=== PATIENT | male | born 1935 | race Caucasian/White ===

== ENCOUNTER 2016-11-13 10:40 | Emergency (ER) | payer MEDICARE, BC ==
--- NOTE | 2016-11-13 11:50 | EDM.PDOC ---
ED HISTORY OF PRESENT ILLNESS - General Chief Complaint: Respiratory Problem Stated Complaint: Per patient and states gentleman has had a cough ongoing for the last week or so seems to be worse at night keeping him up states she is now bringing up a yellowish brownish phlegm patient and denies fever chills night sweats nausea or vomiting states his E. and well drinking plenty of fluids Time Seen by Provider: 11/13/16 11:25 Source of Information: Reports: Patient, Family, RN History Limitations: Reports: No limitations - History of Present Illness INITIAL COMMENTS - FREE TEXT/NARRATIVE: Per his states he had a blackish-looking stool last night patient denied any abdominal pain states he's eating well Timing/Duration: Reports: Week(s): Improves with: Reports: None Worsens with: Reports: None Associated Symptoms (General): Reports: cough, cough w sputum. Denies: diaphoresis, fever/chills, headaches, nausea/vomiting, rash - Related Data Allergies/ADRs: Allergies Allergy/AdvReac Type Severity Reaction Status Date / Time morphine AdvReac Confusion Verified 11/13/16 12:07 Home Meds: Home Meds Ascorbic Acid [C-1000] 1,000 mg PO DAILY 08/28/13 [History] Aspirin/Dipyridamole [Aggrenox 200-25 MG] 1 cap PO BID 08/28/13 [History] Calcium Citrate/Vitamin D3 [Citracal + D Maximum Caplet] 2 each PO DAILY [History] Hydrochlorothiazide 25 mg PO DAILY PRN 08/28/13 [History] Vitamin B Complex [B Complex] 1 each PO BID 08/28/13 [History] Levothyroxine 25 mcg PO ACBREAKFAST 07/06/16 [History] Oxybutynin 5 mg PO BID 07/06/16 [History] Lisinopril 10 mg PO DAILY 11/13/16 [History] Mirabegron [Myrbetriq] 25 mg pe PO DAILY 11/13/16 [History] Past Medical History Cardiovascular History: Reports: Hypertension Genitourinary History: Reports: Other (see below) (PT with a ventral hernia status post cholecystectomy not operational) Other Musculoskeletal History: 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; post CVA Neurological History: Reports: CVA Other Neuro History: 10 years ago Other Dermatologic History: open cyst to low posterior neckline; current upon admission - Past Surgical History Dermatological Surgical History: Reports: Other (see below) Social & Family History - Tobacco Use Smoking Status *Q: Never Smoker - Recreational Drug Use Recreational Drug Use: No ED ROS GENERAL - Review of Systems Review Of Systems: See Below Constitutional: Denies: fever, chills, malaise, weakness, fatigue, decreased appetite, weight loss HEENT: Reports: No symptoms Respiratory: Reports: Cough. Denies: Shortness of Breath, Wheezing, Pleuritic Chest Pain, Sputum, Hemoptysis Cardiovascular: Denies: Chest pain, Dyspnea on exertion, Edema Endocrine: Denies: fatigue GI/Abdominal: Reports: Black stool (Black stools per patient states has had normal bowel movements). Denies: Abdominal pain, Anorexia, Constipation, Diarrhea, Decreased appetite, Difficulty swallowing : Reports: no symptoms Musculoskeletal: Reports: no symptoms Skin: Reports: no symptoms Neurological: Reports: No Symptoms Psychiatric: Reports: No symptoms Hematologic/Lymphatic: Reports: no symptoms Immunologic: Reports: no symptoms ED EXAM, GENERAL - Physical Exam Exam: See Below Exam Limited By: Altered mental status General Appearance: alert, WD/WN, no apparent distress Ears: normal external exam, normal canal, hearing grossly normal, normal TMs Nose: normal inspection, normal mucosa, no blood Throat/Mouth: Normal inspection, Normal lips, Normal teeth, Normal gums, Normal oropharynx, Normal voice, No airway compromise, Other (Patient has mild postnasal drip) Head: atraumatic, normocephalic. No: facial tenderness Neck: normal inspection, supple, non-tender, full range of motion Respiratory/Chest: no respiratory distress, lungs clear, normal breath sounds, no accessory muscle use, chest non-tender, other (Very mild noted diminished breath sounds left lower lobe). No: crackles, rales, rhonchi, wheezing GI/Abdominal: normal bowel sounds, soft, non tender, no organomegaly, no distention, no abnormal bruit, hernia, other (Umbilical hernia noted normal bowel sounds over the area note no tenderness to palpation) Neurological: alert, oriented, CN II-XII intact, normal cognition Psychiatric: normal affect, normal mood Skin Exam: Warm, Dry, Intact, Normal color, No rash Course - Vital Signs Text/Narrative:: One view chest x-ray was ordered to rule out pneumonia CBC and BMP was ordered along with a gastric Hemoccult Hemoccult was negative CBC and BMP were within normal limits glucose mildly elevated chest x-ray no acute process wishes to return home with patient where she has home health scheduled come into the residency Last Recorded V/S: Last Vital Signs Temp 36.6 C 11/13/16 10:40 Pulse 90 11/13/16 10:40 Resp 20 11/13/16 10:40 BP 156/74 H 11/13/16 10:40 Pulse Ox 98 11/13/16 10:40 - Orders/Labs/Meds Orders: Active Orders 24 hr Category Date Time Status Chest 1V Frontal [CR] Stat Exams 11/13/16 11:44 Taken FECAL OCCULT BLOOD,POC SCRN [POC] Stat Lab 11/13/16 13:14 Ordered Labs: Laboratory Tests 11/13/16 11/13/16 Range/Units 12:02 12:02 WBC 11.8 H (4.0-10.0) x10^3/uL RBC 3.80 L (4.5-6.0) x10^6/uL Hgb 12.0 L (14.0-18.0) g/dL Hct 37.3 L (40.0-52.0) % MCV 98.2 H (78.0-93.0) fL MCH 31.6 (26.0-32.0) pg MCHC 32.2 (32.0-36.0) g/dL RDW Coeff of Ra 12.9 (10.0-15.0) % Plt Count 262 (130-400) x10^3/uL Neut % (Auto) 72.8 (50.0-80.0) % Lymph % (Auto) 14.9 L (25.0-50.0) % [place] % (Auto) 11.3 H (2.0-11.0) % Eos % (Auto) 0.8 (0.0-4.0) % Baso % (Auto) 0.2 (0.2-1.2) % Sodium 139 (136-145) mmol/L Potassium 3.9 (3.5-5.1) mmol/L Chloride 105 (98-107) mmol/L Carbon Dioxide 27 (21-32) mmol/L BUN 24 H (7-18) mg/dL Creatinine 1.5 H (0.70-1.30) mg/dL Est Cr Clr Drug Dosing 28.82 mL/min Estimated GFR (MDRD) 45 Glucose 127 H (74-106) mg/dL Calcium 8.2 L (8.5-10.1) mg/dL Departure - Departure Time of Disposition: 13:05 Disposition: Home, Self-Care 01 Condition: good Clinical Impression: Cough in adult Forms: ED Department Discharge Additional Instructions: Spoke with and patient in regards to diagnosis and treatment states they will follow primary care provider Will get some [id number] Coricidin cough syrup and increase fluid intake they are instructed to return to the ER if anything changes or gets worse - My Orders Last 24 Hours: My Active Orders 11/13/16 11:44 Chest 1V Frontal [CR] Stat 11/13/16 13:14 FECAL OCCULT BLOOD,POC SCRN [POC] Stat - Assessment/Plan Last 24 Hours: My Active Orders 11/13/16 11:44 Chest 1V Frontal [CR] Stat 11/13/16 13:14 FECAL OCCULT BLOOD,POC SCRN [POC] Stat
[2016-11-13 11:51] VITALS: BP 156/74
== END 2016-11-13 13:47 | disposition home or self-care (01) ==
LOC: VM.ED 10:40
DX: R05 Cough (principal); I10 Essential (primary) hypertension; Z88.6 Allergy status to analgesic agent
CPT/HCPCS: 36415; 71010; 80048; 85025; 99284; G0328; 99282-GF

== ENCOUNTER 2017-05-01 11:50 | Inpatient (IN) | payer MEDICARE, BC ==
[2017-05-01] MEDS ORDERED: Sodium Chloride 0.9% 10 ML Syringe FLUSH PRN (12:18)
[2017-05-01] MEDS ORDERED: Acetaminophen 325 MG Tab PO PRN (12:18)
[2017-05-01] MEDS: Lactated Ringers 1,000 ML IV SCH ×2 (13:46→23:46)
--- NOTE | 2017-05-01 15:55 | PCM.SN ---
- Free Text/Narrative Note: mild blood in his urine, did have 400 of output after placing the ross. Renal US arranged for Thursday.
--- NOTE | 2017-05-01 18:51 | HP ---
CHIEF COMPLAINT: Weakness. HISTORY OF PRESENT ILLNESS: This is an 82-year-old with a remote history of stroke resulting in some right hemiparesis. His had him out on the [birth year]25, it [birth year] his birthday. They were driving around, and when they got back home, she noticed he was a lot weaker, especially on his right side. She was concerned he might have had another stroke. She called the local ER, but they recommended ambulance, and she thought she could bring him in herself. So, she decided to just wait and see if things got better, but they did not. Now, he is weak overall. He otherwise himself denies any concerns. He is actually not even very happy that he is here at the clinic today. He prefers to stay at home. He has not had any fever or chills. He had some loose bowel movements on Thursday, but none since. He has otherwise been eating and drinking okay. He has not been taking any NSAIDs. He is on Aggrenox chronically for his history of stroke. He has not been using the hydrochlorothiazide as he does have some leg swelling in the evening, but it always goes away by morning. He is not short of breath. He does have some chronic renal insufficiency with creatinine between 1.2 and 1.6, but his last kidney test in 07/2016 was 1.3. He has a history of just mild anemia, last hemoglobin was dropped down slightly to 12.7. Otherwise, he has hypertension. He has been on lisinopril. He has been started on Flomax back in January by Urology. He does take it in the morning. He denies feeling lightheaded or dizzy. ALLERGIES: Include morphine. MEDICATIONS: Include: 1. Flomax 0.4 mg daily in the morning, but switching to night. 2. Ditropan 5 mg twice daily. 3. Levothyroxine 25 mcg daily. 4. Lisinopril 10 mg daily. 5. Aggrenox 25/200 twice daily. 6. Hydrochlorothiazide 1/2 to 1 tablet as needed for leg swelling. 7. Vitamin B complex twice daily. 8. Citracal 2 tablets with breakfast. 9. Lotrisone cream as needed for rash. 10.Vitamin C. 11.It should be noted that he actually used to take 20 mg of lisinopril daily back in 2016. PAST MEDICAL HISTORY: Otherwise, his past medical history includes: 1. Essential hypertension. 2. B12 deficiency. 3. Hypothyroidism. 4. Prediabetes. 5. Old CVA with right hemiparesis. 6. No documented atrial fibrillation. At one point, he did take Coumadin. 7. GERD. 8. BPH, following with Urology. Moderate trilobar prostate with postvoid residual of 117 back in 2015 and meatal stenosis for the urethra. 9. Chronic renal insufficiency. Creatinine 1.2 to 1.6. 10.Urge incontinence, on Ditropan, with a history of urinary retention. 11.Pernicious anemia. PAST SURGICAL HISTORY: The patient has had cholecystectomy and a rotator cuff repair. FAMILY HISTORY: His mother at 89 of old age. He has a daughter who is living, she has had thyroid cancer. His father at 98 of old age. SOCIAL HISTORY: He is to his Mehrdad who still works and takes care of him at home. They also have some other helpers who come into the home. He does not smoke or drink. REVIEW OF SYSTEMS: General: We were unable to get a weight, but there are no noted recent changes in weight. There was no fever. No chills. HEENT: No sore throat. Cardiac: No chest pain. Respiratory: He has had a mild cough, but this is nothing new. He has not been short of breath. Abdomen: He had some loose stools 2 days ago, but nothing since. No abdominal pain otherwise. Neurologic: He is weak really in both lower extremities per his . The patient himself does not complain of anything. Genitourinary: He denies any trouble passing his urine, but he does wear pull- ups. He has had some incontinence. There has been some increased urinary frequency noted by his . She thought maybe he had diabetes. Skin: He otherwise has been noted to be pale. PHYSICAL EXAMINATION: Vital Signs: In the clinic, blood pressure 124/60, temperature 98.5, pulse 76, and O2 of 97 on room air. General: He is in no acute distress. Heart: Regular without appreciated murmur. Lungs: Lung sounds are clear to auscultation bilaterally without crackles or wheezes. He has 2+ carotid pulses without bruit. Abdomen: Positive bowel sounds. Nondistended and nontender. I do not appreciate any bladder enlargement. Extremities: Warm and dry. Just trace edema to the ankles. Mental Status: He is alert. He is orientated x3. Psychiatric: He is joking. He smiled at one point, but then he became very angry when he found out he was staying at the hospital. In addition, on physical exam, weight at the hospital was 79.095 kg, respiratory rate was 20, and O2 was 100% on room air. LABORATORY DATA: Lab work reviewed from the clinic did show the patient to have a normal white count of 7.2, hemoglobin 8.4, and platelets normal at 268. BMP with glucose 128, BUN 36, creatinine 2.95, sodium 142, potassium 4.9, chloride 109, bicarbonate 20, calcium 8.3, and GFR 20. ASSESSMENT AND PLAN: 1. Acute on chronic renal failure. Etiology is unclear. With his anemia, it is possible that this is a gradual worsening over time; however, it could be an acute change as well given the acute onset of worsening weakness around 04/25. At this point, we will check a UA. We will place a Lopez and do strict in's and out's. If obstruction is the cause of his renal insufficiency, then we will hopefully get some improvement with the Lopez. We will try for a renal ultrasound, but it likely will not be until next week. I think that it is okay to wait. 2. Acute on chronic anemia. No reported melena or concern for ongoing bleeding. We will repeat a hemoglobin tomorrow. We will check stools for Hemoccult. Currently, there is no indication for transfusion. Expect that the hemoglobin will go down with IV fluids. If no blood in his stool, we will start heparin probably twice daily for deep venous thrombosis prophylaxis. MCV is slightly elevated. I am going to send off a B12 level as well. 3. Hypothyroidism. He is on thyroxine. I will check a TSH. 4. History of stroke with right hemiplegia. I do not feel that his overall weakness needs new evaluation for stroke. I feel it is probably just some deficits from his old stroke. We will get him up and working with PT. 5. History of prediabetes. Blood sugar is okay. I do not think that is contributing to his current symptoms. 6. Essential hypertension. Blood pressures are under control. I am going to hold the lisinopril given the acute renal failure. He has not been taking his hydrochlorothiazide anyway, but I will hold that as well. 7. Benign prostatic hypertrophy. We will continue Flomax. We will change it to nighttime dosing. 8. Urinary incontinence. He is going to have a Lopez placed for strict I's and O's. I am going to hold the Ditropan. 9. For deep venous thrombosis prophylaxis, we will put on support stockings and SCDs. PLAN: At this point, the patient is admitted for acute care for IV fluids, lab monitoring, and strict in's and out's. We will continue his Aggrenox for stroke prevention unless there is blood found in his stools. Then, we will discontinue that. Anticipate he will need at least 2 nights of acute care. We will try to get him up and working with therapies. He is a code level 3. No CPR. MKA: 05/01/2017 12:51:02 MODL: 05/01/2017 18:46:05 /[id number]
[2017-05-01] MEDS: Aspirin/Dipyridamole 200-25 MG Cap.ER PO SCH (19:56)
[2017-05-01] MEDS: Vitamin B Complex Tab.ER PO SCH (19:56)
[2017-05-02] MEDS: Levothyroxine 25 MCG Tab PO SCH (06:14)
[2017-05-02] MEDS: Vitamin B Complex Tab.ER PO SCH ×2 (08:08→19:42)
[2017-05-02] MEDS: Aspirin/Dipyridamole 200-25 MG Cap.ER PO SCH ×2 (08:08→19:42)
[2017-05-02] MEDS: Calcium Citrate/Vitamin D3 315 MG-250 Unit Tab PO SCH (08:08)
--- NOTE | 2017-05-02 09:12 | PCM.PN ---
- General Info Date of Service: 05/02/17 Subjective Update: No overnight events. Feels the same as yesterday; wondering if he can go home. Denies chest pain, shortness of breath, lightheadedness, abdominal pain, fever, or chills. - Review of Systems General: Reports: No Symptoms HEENT: Reports: No Symptoms Pulmonary: Reports: No Symptoms Cardiovascular: Reports: No Symptoms Gastrointestinal: Reports: No Symptoms Genitourinary: Reports: No Symptoms Musculoskeletal: Reports: No Symptoms Skin: Reports: No Symptoms Neurological: Reports: No Symptoms - Patient Data Vitals - Most Recent: Last Vital Signs Temp 36.7 C 05/02/17 06:00 Pulse 87 05/02/17 06:00 Resp 18 05/02/17 06:00 BP 153/61 H 05/02/17 06:00 Pulse Ox 100 05/02/17 06:00 Weight - Most Recent: 79.095 kg I&O - Last 24 Hours: Intake & Output 05/01/17 05/02/17 05/02/17 22:59 06:59 14:59 Intake Total 973 1644 Output Total 500 1650 Balance 473 -6 Lab Results Last 24 Hours: Laboratory Results - last 24 hr 05/01/17 05/02/17 05/02/17 Range/Units 14:00 07:27 07:27 WBC 9.1 (4.0-10.0) x10^3/uL RBC 2.44 L (4.5-6.0) x10^6/uL Hgb 7.9 L* D (14.0-18.0) g/dL Hct 23.9 L (40.0-52.0) % MCV 98.0 H (78.0-93.0) fL MCH 32.4 H (26.0-32.0) pg MCHC 33.1 (32.0-36.0) g/dL RDW Coeff of Ra 12.5 (10.0-15.0) % Plt Count 262 (130-400) x10^3/uL Neut % (Auto) 62.6 (50.0-80.0) % Lymph % (Auto) 23.8 L (25.0-50.0) % [place] % (Auto) 12.1 H (2.0-11.0) % Eos % (Auto) 1.3 (0.0-4.0) % Baso % (Auto) 0.2 (0.2-1.2) % Sodium 141 (136-145) mmol/L Potassium 4.9 (3.5-5.1) mmol/L Chloride 109 H (98-107) mmol/L Carbon Dioxide 24 (21-32) mmol/L BUN 34 H (7-18) mg/dL Creatinine 2.8 H D (0.70-1.30) mg/dL Est Cr Clr Drug Dosing 15.81 mL/min Estimated GFR (MDRD) 22 Glucose 101 (74-106) mg/dL Calcium 8.2 L (8.5-10.1) mg/dL Corrected Calcium 9.08 (8.5-10.1) mg/dL Total Bilirubin 0.4 (0.2-1.0) mg/dL AST 14 L (15-37) U/L ALT 19 (16-63) U/L Alkaline Phosphatase 58 (46-116) U/L Total Protein 6.4 (6.4-8.2) g/dL Albumin 2.9 L (3.4-5.0) g/dL Globulin 3.5 Albumin/Globulin Ratio 0.83 TSH, Ultra Sensitive (0.358-3.74) uIU/mL Urine Color Yellow (YELLOW) Urine Appearance Clear (CLEAR) Urine pH 5.0 (5.0-8.0) Ur Specific [place] 1.015 Urine Protein Negative (NEGATIVE) mg/dL Urine Glucose (UA) Negative (NEGATIVE) mg/dL Urine Ketones Negative (NEGATIVE) mg/dL Urine Occult Blood Moderate H (NEGATIVE) Urine Nitrite Negative (NEGATIVE) Urine Bilirubin Negative (NEGATIVE) Urine Urobilinogen 0.2 (0.2) EU/dL Ur Leukocyte Esterase Negative (NEGATIVE) Urine RBC 10-20 H (NOT SEEN) /HPF Urine WBC 0-5 (NOT SEEN) /HPF Ur Squamous Epith Cells Not seen (NEGATIVE) /HPF Urine Bacteria Rare (NEGATIVE) /HPF Urine Mucus Not seen (NEGATIVE) /LPF 05/02/17 Range/Units 07:27 WBC (4.0-10.0) x10^3/uL RBC (4.5-6.0) x10^6/uL Hgb (14.0-18.0) g/dL Hct (40.0-52.0) % MCV (78.0-93.0) fL MCH (26.0-32.0) pg MCHC (32.0-36.0) g/dL RDW Coeff of Ra (10.0-15.0) % Plt Count (130-400) x10^3/uL Neut % (Auto) (50.0-80.0) % Lymph % (Auto) (25.0-50.0) % [place] % (Auto) (2.0-11.0) % Eos % (Auto) (0.0-4.0) % Baso % (Auto) (0.2-1.2) % Sodium (136-145) mmol/L Potassium (3.5-5.1) mmol/L Chloride (98-107) mmol/L Carbon Dioxide (21-32) mmol/L BUN (7-18) mg/dL Creatinine (0.70-1.30) mg/dL Est Cr Clr Drug Dosing mL/min Estimated GFR (MDRD) Glucose (74-106) mg/dL Calcium (8.5-10.1) mg/dL Corrected Calcium (8.5-10.1) mg/dL Total Bilirubin (0.2-1.0) mg/dL AST (15-37) U/L ALT (16-63) U/L Alkaline Phosphatase (46-116) U/L Total Protein (6.4-8.2) g/dL Albumin (3.4-5.0) g/dL Globulin Albumin/Globulin Ratio TSH, Ultra Sensitive 4.527 H (0.358-3.74) uIU/mL Urine Color (YELLOW) Urine Appearance (CLEAR) Urine pH (5.0-8.0) Ur Specific [place] Urine Protein (NEGATIVE) mg/dL Urine Glucose (UA) (NEGATIVE) mg/dL Urine Ketones (NEGATIVE) mg/dL Urine Occult Blood (NEGATIVE) Urine Nitrite (NEGATIVE) Urine Bilirubin (NEGATIVE) Urine Urobilinogen (0.2) EU/dL Ur Leukocyte Esterase (NEGATIVE) Urine RBC (NOT SEEN) /HPF Urine WBC (NOT SEEN) /HPF Ur Squamous Epith Cells (NEGATIVE) /HPF Urine Bacteria (NEGATIVE) /HPF Urine Mucus (NEGATIVE) /LPF Med Orders - Current: Current Medications Acetaminophen (Tylenol) 650 mg PO Q4H PRN PRN Reason: Pain (Mild 1-3)/fever Calcium Citrate (Calcium Citrate + D) 2 tab PO DAILY [facility] Last Admin: 05/02/17 08:08 Dose: 2 tab Dipyridamole/Aspirin (Aggrenox 200-25 Mg) 1 cap PO BID [facility] Last Admin: 05/02/17 08:08 Dose: 1 cap Lactated Ringer's (Ringers, Lactated) 1,000 mls @ 100 mls/hr IV ASDIRECTED [facility] Last Admin: 05/01/17 23:46 Dose: 100 mls/hr Levothyroxine Sodium (Levothyroxine) 25 mcg PO ACBREAKFAST [facility] Last Admin: 05/02/17 06:14 Dose: 25 mcg Sodium Chloride (Saline Flush) 10 ml FLUSH ASDIRECTED PRN PRN Reason: Keep Vein Open Tamsulosin HCl (Flomax) 0.4 mg PO BEDTIME [facility] Vitamin B Complex (Balanced B-50) 1 each PO BID [facility] Last Admin: 05/02/17 08:08 Dose: 1 each - Exam General: Alert, Cooperative, No Acute Distress HEENT: Mucous Membr. Moist/[place] Neck: Supple, Trachea Midline, No Thyromegaly. No: Lymphadenopathy Lungs: Clear to Auscultation, Normal Respiratory Effort Cardiovascular: Regular Rate, Regular Rhythm, No Murmurs GI/Abdominal Exam: Normal Bowel Sounds, Soft, Non-Tender, No Organomegaly, No Distention, No Mass Extremities: Non-Tender, No Pedal Edema, Normal Capillary Refill Skin: Warm, Dry, Intact - Problem List & Annotations (1) Acute on chronic renal failure SNOMED Code(s): 352266158 Code(s): N17.9 - ACUTE KIDNEY FAILURE, UNSPECIFIED; N18.9 - CHRONIC KIDNEY DISEASE, UNSPECIFIED Status: Acute Current Visit: Yes Qualifiers: Acute renal failure type: unspecified Chronic kidney disease stage: stage 3 (moderate) Qualified Code(s): N17.9 - Acute kidney failure, unspecified; N18.3 - Chronic kidney disease, stage 3 (moderate) Annotation/Comment:: - Consideration at this point is either progressive of chronic renal disease (suspected due to the concomittant anemia) with possibly some acute kidney injury. - He has had some improvement with the fluids, suggesting at least part of this is prerenal. - He is tolerating the fluid load well and having good urine output. His balance is only 500 cc positive. His weight is stable and he has no clinical signs of fluid overload. - Continue gentle IV fluids. - Renal u/s planned for Thursday. No further work-up over the weekend. (2) Anemia SNOMED Code(s): 643553788 Code(s): D64.9 - ANEMIA, UNSPECIFIED Status: Acute Current Visit: Yes Qualifiers: Anemia type: unspecified type Qualified Code(s): D64.9 - Anemia, unspecified Annotation/Comment:: - Possibly related to progressive CKD. No obvious source of blood loss. - Hemoccult to be done as soon as patient has a BM. - Vitamin B12 level pending. Will do iron studies with labs tomorrow am. - Hgb is down to 7.9 but I honestly expected more of a drop. No clear indication for transfusion until <7. Since he is not symptomatic and it is presumed at least part of this is chronic, I do feel the risks of transfusion outweigh the benefits today. He and his are comfortable with holding off on that. - Recheck Hgb tomorrow. (3) Hypothyroidism SNOMED Code(s): 61943198 Code(s): E03.9 - HYPOTHYROIDISM, UNSPECIFIED Status: Chronic Current Visit: Yes Qualifiers: Hypothyroidism type: acquired Qualified Code(s): E03.9 - Hypothyroidism, unspecified Annotation/Comment:: - TSH only mildly elevated. In light of his current medical issues, I would not adjust his levothyroxine based on this. - Can be rechecked as an outpatient. (4) Cerebrovascular accident SNOMED Code(s): 481092579 Code(s): I63.9 - CEREBRAL INFARCTION, UNSPECIFIED Status: Chronic Current Visit: Yes Qualifiers: CVA mechanism: unspecified Qualified Code(s): I63.9 - Cerebral infarction, unspecified Annotation/Comment:: - Patient has a history of a CVA. Current weakness symptoms presumed to be exacerbation of prior deficits in the setting of his anemia and acute kidney injury. - PT/OT/SW consults. (5) Hypertension SNOMED Code(s): 36835524 Code(s): I10 - ESSENTIAL (PRIMARY) HYPERTENSION Status: Chronic Current Visit: Yes Qualifiers: Hypertension type: essential hypertension Qualified Code(s): I10 - Essential (primary) hypertension Annotation/Comment:: - BP up slightly this am. - His lisinopril and HCTZ are held due to his kidney injury. - Will watch his BP for now. If this increases or does not come down, will need to consider starting a different antihypertensive. Possibly amlodipine would be the best option in light of the renal issues. (6) Urinary incontinence SNOMED Code(s): 596688474 Code(s): R32 - UNSPECIFIED URINARY INCONTINENCE Status: Chronic Current Visit: Yes Qualifiers: Urinary Incontinence type: unspecified incontinence Qualified Code(s): R32 - Unspecified urinary incontinence Annotation/Comment:: - Patient has a ross catheter in place for strict I/O monitoring. - I do feel it is appropriate to leave this in place for now. If his creatinine progressively improves, we could consider removal with a trial of voiding. If we do remove the catheter, he will need some post-void residuals to ensure that urinary retention is not the original cause of his kidney injury. (7) BPH (benign prostatic hyperplasia) SNOMED Code(s): 960468580, 938621023 Code(s): N40.0 - BENIGN PROSTATIC HYPERPLASIA WITHOUT LOWER URINRY TRACT SYMP Status: Chronic Current Visit: Yes Qualifiers: Lower urinary tract symptom presence: unspecified whether lower urinary tract symptoms present Qualified Code(s): N40.0 - Benign prostatic hyperplasia without lower urinary tract symptoms Annotation/Comment:: - Flomax has been continued. - Problem List Review Problem List Initiated/Reviewed/Updated: Yes - Assessment Assessment:: 82 yo male admitted with increased weakness secondary to anemia and ENRIQUE. Doing well this morning. 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 - Plan Plan:: See details under problems above. IV fluids will be continued. No transfusion today. Recheck labs in the am. He is on SCD's for VTE prophylaxis right now in light of his anemia; plan is to start heparin if his hemoccult is negative. He is a DNR. Anticipate he will be on acute status until at least Thursday for ongoing management and follow-up labs. Likely will require swing bed cares for a period of time after that.
[2017-05-02] MEDS: Lactated Ringers 1,000 ML IV SCH ×2 (09:36→19:45)
--- NOTE | 2017-05-02 16:54 | PCM.SN ---
- Free Text/Narrative Note: Hemoccult negative. If Hgb stable again tomorrow am, will start VTE prophylaxis with heparin.
[2017-05-02] MEDS: Tamsulosin 0.4 MG Cap.ER PO SCH (19:42)
[2017-05-03] MEDS: Levothyroxine 25 MCG Tab PO SCH (06:21)
[2017-05-03] MEDS: Lactated Ringers 1,000 ML IV SCH ×2 (07:22→17:22)
[2017-05-03] MEDS: Vitamin B Complex Tab.ER PO SCH ×2 (08:07→20:15)
[2017-05-03] MEDS: Calcium Citrate/Vitamin D3 315 MG-250 Unit Tab PO SCH (08:07)
[2017-05-03] MEDS: Aspirin/Dipyridamole 200-25 MG Cap.ER PO SCH ×2 (08:07→20:15)
--- NOTE | 2017-05-03 08:28 | PCM.PN ---
- General Info Date of Service: 05/03/17 Subjective Update: Slept well again overnight. Still only question is when he can go home. Remains somewhat weak but otherwise no symptoms. - Review of Systems General: Reports: No Symptoms HEENT: Reports: No Symptoms Pulmonary: Reports: No Symptoms Cardiovascular: Reports: No Symptoms Gastrointestinal: Reports: No Symptoms Genitourinary: Reports: No Symptoms Musculoskeletal: Reports: No Symptoms Skin: Reports: No Symptoms Neurological: Reports: No Symptoms - Patient Data Vitals - Most Recent: Last Vital Signs Temp 37.4 C 05/03/17 06:00 Pulse 84 05/03/17 06:00 Resp 20 05/03/17 06:00 BP 141/94 H 05/03/17 06:00 Pulse Ox 95 05/03/17 06:00 Weight - Most Recent: 79.095 kg I&O - Last 24 Hours: Intake & Output 05/02/17 05/03/17 05/03/17 22:59 06:59 14:59 Intake Total 1858 844 Output Total 850 2000 Balance 1008 -1156 Lab Results Last 24 Hours: Laboratory Results - last 24 hr 05/02/17 05/02/17 05/03/17 Range/Units 07:27 07:27 07:24 WBC 9.1 10.2 H (4.0-10.0) x10^3/uL RBC 2.44 L 2.42 L (4.5-6.0) x10^6/uL Hgb 7.9 L* D 7.8 L* (14.0-18.0) g/dL Hct 23.9 L 23.5 L (40.0-52.0) % MCV 98.0 H 97.1 H (78.0-93.0) fL MCH 32.4 H 32.2 H (26.0-32.0) pg MCHC 33.1 33.2 (32.0-36.0) g/dL RDW Coeff of Ra 12.5 12.4 (10.0-15.0) % Plt Count 262 236 (130-400) x10^3/uL Neut % (Auto) 62.6 64.9 (50.0-80.0) % Lymph % (Auto) 23.8 L 21.2 L (25.0-50.0) % [place] % (Auto) 12.1 H 12.1 H (2.0-11.0) % Eos % (Auto) 1.3 1.6 (0.0-4.0) % Baso % (Auto) 0.2 0.2 (0.2-1.2) % Sodium 141 (136-145) mmol/L Potassium 4.9 (3.5-5.1) mmol/L Chloride 109 H (98-107) mmol/L Carbon Dioxide 24 (21-32) mmol/L BUN 34 H (7-18) mg/dL Creatinine 2.8 H D (0.70-1.30) mg/dL Est Cr Clr Drug Dosing 15.81 mL/min Estimated GFR (MDRD) 22 Glucose 101 (74-106) mg/dL Calcium 8.2 L (8.5-10.1) mg/dL Corrected Calcium 9.08 (8.5-10.1) mg/dL Total Bilirubin 0.4 (0.2-1.0) mg/dL AST 14 L (15-37) U/L ALT 19 (16-63) U/L Alkaline Phosphatase 58 (46-116) U/L Total Protein 6.4 (6.4-8.2) g/dL Albumin 2.9 L (3.4-5.0) g/dL Globulin 3.5 Albumin/Globulin Ratio 0.83 09//17 Range/Units 07:24 WBC (4.0-10.0) x10^3/uL RBC (4.5-6.0) x10^6/uL Hgb (14.0-18.0) g/dL Hct (40.0-52.0) % MCV (78.0-93.0) fL MCH (26.0-32.0) pg MCHC (32.0-36.0) g/dL RDW Coeff of Ra (10.0-15.0) % Plt Count (130-400) x10^3/uL Neut % (Auto) (50.0-80.0) % Lymph % (Auto) (25.0-50.0) % [place] % (Auto) (2.0-11.0) % Eos % (Auto) (0.0-4.0) % Baso % (Auto) (0.2-1.2) % Sodium 140 (136-145) mmol/L Potassium 4.9 (3.5-5.1) mmol/L Chloride 109 H (98-107) mmol/L Carbon Dioxide 25 (21-32) mmol/L BUN 30 H (7-18) mg/dL Creatinine 2.5 H (0.70-1.30) mg/dL Est Cr Clr Drug Dosing 17.70 mL/min Estimated GFR (MDRD) 25 Glucose 105 (74-106) mg/dL Calcium 8.1 L (8.5-10.1) mg/dL Corrected Calcium (8.5-10.1) mg/dL Total Bilirubin (0.2-1.0) mg/dL AST (15-37) U/L ALT (16-63) U/L Alkaline Phosphatase (46-116) U/L Total Protein (6.4-8.2) g/dL Albumin (3.4-5.0) g/dL Globulin Albumin/Globulin Ratio Med Orders - Current: Current Medications Acetaminophen (Tylenol) 650 mg PO Q4H PRN PRN Reason: Pain (Mild 1-3)/fever Calcium Citrate (Calcium Citrate + D) 2 tab PO DAILY [facility] Last Admin: 05/03/17 08:07 Dose: 2 tab Dipyridamole/Aspirin (Aggrenox 200-25 Mg) 1 cap PO BID [facility] Last Admin: 05/03/17 08:07 Dose: 1 cap Lactated Ringer's (Ringers, Lactated) 1,000 mls @ 100 mls/hr IV ASDIRECTED [facility] Last Admin: 05/03/17 07:22 Dose: 100 mls/hr Levothyroxine Sodium (Levothyroxine) 25 mcg PO ACBREAKFAST [facility] Last Admin: 05/03/17 06:21 Dose: 25 mcg Sodium Chloride (Saline Flush) 10 ml FLUSH ASDIRECTED PRN PRN Reason: Keep Vein Open Tamsulosin HCl (Flomax) 0.4 mg PO BEDTIME [facility] Last Admin: 05/02/17 19:42 Dose: 0.4 mg Vitamin B Complex (Balanced B-50) 1 each PO BID [facility] Last Admin: 05/03/17 08:07 Dose: 1 each - Exam General: Alert, Cooperative, No Acute Distress HEENT: Mucous Membr. Moist/[place] Neck: Supple, Trachea Midline, No Thyromegaly. No: Lymphadenopathy Lungs: Clear to Auscultation, Normal Respiratory Effort Cardiovascular: Regular Rate, Regular Rhythm, No Murmurs GI/Abdominal Exam: Normal Bowel Sounds, Soft, Non-Tender, No Organomegaly, No Distention, No Mass Extremities: Normal Inspection, Non-Tender, No Pedal Edema, Normal Capillary Refill Skin: Warm, Dry, Intact - Problem List & Annotations (1) Acute on chronic renal failure SNOMED Code(s): 951346692 Code(s): N17.9 - ACUTE KIDNEY FAILURE, UNSPECIFIED; N18.9 - CHRONIC KIDNEY DISEASE, UNSPECIFIED Status: Acute Current Visit: Yes Qualifiers: Acute renal failure type: unspecified Chronic kidney disease stage: stage 3 (moderate) Qualified Code(s): N17.9 - Acute kidney failure, unspecified; N18.3 - Chronic kidney disease, stage 3 (moderate) Annotation/Comment:: - Based on the ongoing creatinine improvement, it would be consistent with an acute on chronic picture. Where is current baseline creatinine is, though, is unclear. 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 - He is tolerating the fluid load well and having excellent urine output. Fluid balance is even. His weight is stable and he has no clinical signs of fluid overload. - Continue gentle IV fluids. - Renal u/s planned for Thursday. No further work-up over the weekend. (2) Anemia SNOMED Code(s): 166085268 Code(s): D64.9 - ANEMIA, UNSPECIFIED Status: Acute Current Visit: Yes Qualifiers: Anemia type: unspecified type Qualified Code(s): D64.9 - Anemia, unspecified Annotation/Comment:: - Possibly related to progressive CKD. No obvious source of blood loss. - Hemoccult negative. - Vitamin B12 level pending. Iron studies are not consistent with iron deficiency anemia but rather anemia of chronic disease with the exception of the normal ferritin. - Hgb is down to 7.8 only. It is surprising he has not had more of a drop with all the IV fluids. No clear indication for transfusion until <7. Since he is not symptomatic and it is presumed at least part of this is chronic, I feel again today that the risks of transfusion outweigh the benefits. He and his are comfortable with holding off on that. - Recheck Hgb tomorrow. (3) Hypothyroidism SNOMED Code(s): 06869590 Code(s): E03.9 - HYPOTHYROIDISM, UNSPECIFIED Status: Chronic Current Visit: Yes Qualifiers: Hypothyroidism type: acquired Qualified Code(s): E03.9 - Hypothyroidism, unspecified Annotation/Comment:: - TSH only mildly elevated. In light of his current medical issues, I would not adjust his levothyroxine based on this. - Can be rechecked as an outpatient. (4) Cerebrovascular accident SNOMED Code(s): 333627327 Code(s): I63.9 - CEREBRAL INFARCTION, UNSPECIFIED Status: Chronic Current Visit: Yes Qualifiers: CVA mechanism: unspecified Qualified Code(s): I63.9 - Cerebral infarction, unspecified Annotation/Comment:: - Patient has a history of a CVA. Current weakness symptoms presumed to be exacerbation of prior deficits in the setting of his anemia and acute kidney injury. - PT/OT/SW consults. (5) Hypertension SNOMED Code(s): 68745793 Code(s): I10 - ESSENTIAL (PRIMARY) HYPERTENSION Status: Chronic Current Visit: Yes Qualifiers: Hypertension type: essential hypertension Qualified Code(s): I10 - Essential (primary) hypertension Annotation/Comment:: - BP has been borderline. - His lisinopril and HCTZ are held due to his kidney injury. - Will continue to watch his BP for now and hold off on starting any new antihypertensives. (6) Urinary incontinence SNOMED Code(s): 367630560 Code(s): R32 - UNSPECIFIED URINARY INCONTINENCE Status: Chronic Current Visit: Yes Qualifiers: Urinary Incontinence type: unspecified incontinence Qualified Code(s): R32 - Unspecified urinary incontinence Annotation/Comment:: - D/C IV fluids. His I/O balance has been very appropriate thus far. - Nursing staff will watch closely today and do PVR periodically to assess how well he is emptying his bladder. (7) BPH (benign prostatic hyperplasia) SNOMED Code(s): 063019182, 778820369 Code(s): N40.0 - BENIGN PROSTATIC HYPERPLASIA WITHOUT LOWER URINRY TRACT SYMP Status: Chronic Current Visit: Yes Qualifiers: Lower urinary tract symptom presence: unspecified whether lower urinary tract symptoms present Qualified Code(s): N40.0 - Benign prostatic hyperplasia without lower urinary tract symptoms Annotation/Comment:: - Flomax has been continued. - Problem List Review Problem List Initiated/Reviewed/Updated: Yes - My Orders Last 24 Hours: My Active Orders 05/03/17 07:24 FERRITIN [CHEM] Routine IRON/TIBC [CHEM] Routine 05/03/17 08:30 Heparin Sodium 5,000 units SUBCUT Q12HR 05/04/17 07:00 CBC W/O DIFF,HEMOGRAM [HEME] Q3D 05/07/17 07:00 CBC W/O DIFF,HEMOGRAM [HEME] Q3D 05/10/17 07:00 CBC W/O DIFF,HEMOGRAM [HEME] Q3D 05/13/17 07:00 CBC W/O DIFF,HEMOGRAM [HEME] Q3D 05/16/17 07:00 CBC W/O DIFF,HEMOGRAM [HEME] Q3D 05/19/17 07:00 CBC W/O DIFF,HEMOGRAM [HEME] Q3D 05/22/17 07:00 CBC W/O DIFF,HEMOGRAM [HEME] Q3D - Assessment Assessment:: 82 yo male admitted with increased weakness secondary to anemia and ENRIQUE. Doing well this morning. Labs continue to improve/remain stable. - Plan Plan:: See details under problems above. IV fluids will be continued. Urinary catheter will be discontinued. No transfusion today. Recheck labs in the am. As his Hgb has been stable and his hemoccult was negative, will start heparin BID for VTE prophylaxis. He is a DNR. Anticipate he will be on acute status until at least tomorrow for ongoing management and follow-up labs. Likely will require swing bed cares for a period of time after that. PT and OT consults are pending. His daughter had apparently asked whether he should be transferred to [place] or not. I do not feel that he requires this given improvement/stability of labs/ symptoms. If they decide to transfer, I am happy to make those arrangements though.
[2017-05-03] MEDS: Heparin Sodium 5,000 Units/ML Vial SUBCUT SCH ×2 (09:45→20:15)
[2017-05-03] MEDS: Tamsulosin 0.4 MG Cap.ER PO SCH (20:15)
[2017-05-04] MEDS: Lactated Ringers 1,000 ML IV SCH (02:57)
[2017-05-04] MEDS: Levothyroxine 25 MCG Tab PO SCH (06:16)
[2017-05-04] MEDS: Aspirin/Dipyridamole 200-25 MG Cap.ER PO SCH ×2 (08:03→19:57)
[2017-05-04] MEDS: Vitamin B Complex Tab.ER PO SCH ×2 (08:03→19:57)
[2017-05-04] MEDS: Calcium Citrate/Vitamin D3 315 MG-250 Unit Tab PO SCH (08:03)
[2017-05-04] MEDS: Heparin Sodium 5,000 Units/ML Vial SUBCUT SCH ×2 (08:03→19:57)
--- NOTE | 2017-05-04 09:53 | PN ---
Progress Note for CONSUELO PINEDA Date: 05/04/2017 Room #: VM.203 SUBJECTIVE: Hospital day #4 on an 82-year-old admitted with weakness with acute- on-chronic renal failure and anemia. The patient's Hemoccult was negative, his hemoglobin has trended down slightly, he continues to be weak, but denies any chest pain, cough, shortness of breath, or abdominal pain. He does still cough quite a bit when drinking, which I witnessed today, he is scheduled for a video swallow; otherwise, he denies any burning with urination, but he has had difficulty with incontinence ever since removing the Lopez yesterday. He had low-grade fever this morning, white count was mildly up to 10.2 yesterday, but it is down today. He denies any shaking chills. He has been shaking his fist at people, he is quite unhappy to be here, and this is unchanged really since admission. OBJECTIVE: Vital Signs: This morning, his temperature is 100.3, that is his T- max, pulse 80, blood pressure 147/51, respiratory rate 22, and O2 of 96 on room air. General: He is in no acute distress. Heart: Regular rate and rhythm. Lungs: Lungs sounds show decreased air entry in both bases with crackles more so on the right than the left. Abdomen: Mildly distended and nontender. Extremities: Warm and dry. No edema. Skin: Overall, he appeared pale. Mental Status: He is alert. He answers yes and no to questions. He was not speaking much today. He did talk in some Wolof. LABORATORY DATA: Otherwise, lab work reviewed does show his white count normal at 8.9, hemoglobin 7.2, and platelets 217. Sodium 141, potassium 4.7, chloride 109, bicarb 25, BUN 32, creatinine down to 2.5, same as yesterday, glucose 107, calcium 8, and albumin on admission was 2.9. UA showed 10 to 20 rbc's, but no wbc's on admission. ASSESSMENT: 1. Fsokb-[id number]-[id number] renal failure. This is probably longstanding. Given he also has anemia, we are going to go ahead and get a renal ultrasound today. He did not have significant residual over 400 on admission. He appeared to be dehydrated. He has had some mild improvement in renal function, but I expect this could be his new baseline. 2. [id number] anemia with no signs of bleeding, but symptoms of weakness. At this point, discussed with the patient and his , we will transfuse 1 unit of packed red blood cells given that he has had a history of stroke and the weakness is definitely worsening his underlying right hemiparesis. 3. Low-grade fevers. We will repeat x-ray today of the chest. We will do a UA to rule out any infections. 4. Probable aspiration. He will be seen by Speech with a video swallow today. 5. Hypothyroidism, treated. 6. 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 7. Essential hypertension, controlled. 8. Urinary incontinence with history of benign prostatic hypertrophy. We will continue him on Flomax. We will get a bladder scan today. 9. Agitation. The patient is just not happy to be here. I do not think his level of violence has escalated any further than admission. We will continue supportive therapy. 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 10.Moderate malnutrition. PLAN: The patient will be seen by PT/OT and speech today. He will have a video swallow. He will have a renal ultrasound. We will repeat a UA. We will get a chest x-ray. We will get him started on some incentive spirometry. We will get blood cultures. We will repeat lab work tomorrow including a renal panel to check albumin. Otherwise, the patient will continue acute cares, he will likely transition over to swing bed tomorrow. Overall, he is not worsening and his condition just has not significantly improved. I updated his extensively this morning. He is going to need an SNF as he is too weak to go home with her currently. SOPHYA: 05/04/2017 08:32:31 MODL: 05/04/2017 09:32:10 /[id number]
[2017-05-04] MEDS: Tamsulosin 0.4 MG Cap.ER PO SCH (19:57)
[2017-05-05] MEDS: Levothyroxine 25 MCG Tab PO SCH (06:08)
[2017-05-05] MEDS: Calcium Citrate/Vitamin D3 315 MG-250 Unit Tab PO SCH (07:57)
[2017-05-05] MEDS: Heparin Sodium 5,000 Units/ML Vial SUBCUT SCH (07:57)
[2017-05-05] MEDS: Aspirin/Dipyridamole 200-25 MG Cap.ER PO SCH (07:57)
[2017-05-05] MEDS: Vitamin B Complex Tab.ER PO SCH (07:57)
[2017-05-05] MEDS ORDERED: Oxybutynin 5 MG Tab PO SCH (09:00)
[2017-05-05 09:48] VITALS: BP 145/65
--- NOTE | 2017-05-06 03:06 | DISCH ---
PRIMARY DISCHARGE DIAGNOSES: 1. Acute on chronic renal failure, unspecified etiology. Renal ultrasound showed medical renal disease. He did have some hematuria, but no urinary retention. He was on an NGHIA inhibitor. This might have been just the progression of his medical renal disease. 2. Acute on chronic anemia, possibly due to renal failure. He had no active bleeding. Hemoccult negative. He did receive 1 unit of packed red blood cells during his stay. His discharge hemoglobin was 8.5. 3. History of stroke with right hemiparesis, worsened by current weakness resulting in impaired mobility. 4. Low-grade fevers, but no evidence of infection. 5. Coughing with swallowing, no aspiration by video swallow. It is felt he just drinks too fast per speech therapy. 6. Hypothyroidism treated. 7. 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 He has some agitation. reports this is longstanding. 8. Essential hypertension with mildly elevated blood pressures off losartan. 9. Chronic urinary urge incontinence with benign prostatic hyperplasia. He is on Flomax. We will restart his Ditropan. He had a Lopez catheter initially for strict I's and O's, but that was removed without any voiding difficulty. 10.Moderate malnutrition. REASON FOR ADMISSION: On the date of admission, this 82-year-old male was brought into the clinic by his due to increasing weakness of both lower extremities. She was concerned that he had a stroke about 6 days prior. She was hoping to get him seen to get some home care and home physical therapy as she is unable to get him up and move him as easily as she once was. Otherwise, he was found to be quite anemic and in acute renal failure with hemoglobin down to 8.4, when on the previous year, it was 12.7. His creatinine was also up to 2.95. He was felt to be dehydrated as well. He was admitted. He was put on IV fluids. His hemoglobin did trend down slowly to 7.8 and then to 7.2. He was weak. He was unable to really participate with therapies. He was feeling fatigued. Therefore, we did transfuse him 1 unit. Otherwise, his creatinine improved only down to 2.5 during his stay and then did bump back slightly to 2.7, so it was felt that this might be his new baseline. Despite even the small amount of hematuria with his cath specimen, which is likely the cause, I did not recommend pursuing any renal biopsy or other aggressive measures. He did have a chest x-ray done x2 that did not show any evidence of pneumonia due to his coughing. He otherwise had an uneventful course. His IV fluids were stopped. He was eating and drinking on his own. He was up to 100% of most meals. He was having bowel movements. He was working with therapies. He was improved medically, but felt not to be stable to return home with his due to weakness, especially in his legs. Therefore, he is being transitioned over to swing bed for further therapies. I did discuss with his his moods and recommendations were made to try a low-dose 5 mg daily of Celexa. DISCHARGE PLANS AND INSTRUCTIONS: To swing bed. We will restart oxybutynin for bladder symptoms as he did not have any residuals or UTI. We will start Celexa for moods. We will hold off on his losartan, but if blood pressures continue to be elevated above the 160/90 range, we will restart that as well. PHYSICAL EXAMINATION: Vitals signs: On discharge, weight 81.8 kg, temperature 98.2, pulse 79, blood pressure 145/65, respiratory rate 18, and O2 100% on room air. General: He is in no acute distress. Heart: Regular rate and rhythm. S1, S2 without murmur. Lungs: Sounds are clear to auscultation bilaterally without crackles or wheezes. Abdomen: Positive bowel sounds. It is soft, it is nontender. Extremities: Warm and dry. No edema. Skin: Overall does appear mildly pale. Mental Status: He is alert, he is orientated x3. He is talking more today, answering questions. He does not appear to be as agitated or upset about being here. He is joking. Greater than 30 minutes spent on the discharge process. We will have him working with therapies. I will check his kidney function and CBC on Thursday. Dr. Dow can follow while I am away as she is familiar with the patient from when she was covering on-call. MKA: 05/05/2017 12:30:14 MODL: 05/06/2017 03:01:12 /[id number]
== END 2017-05-05 09:37 | disposition swing bed (61) | DRG 683 ==
LOC: VM.MS 11:51
PROVIDERS: ADMIT Internal Medicine; ATTEND Internal Medicine
PROC: 30233N1 Transfusion of Nonautologous Red Blood Cells into Peripheral Vein, Percutaneous Approach (ICD-10-PCS; principal; 2017-05-04)
DX: I12.9 Hypertensive chronic kidney disease with stage 1 through stage 4 chronic kidney disease, or unspecified chronic kidney disease (principal); N17.9 Acute kidney failure, unspecified; I69.351 Hemiplegia and hemiparesis following cerebral infarction affecting right dominant side; E46 Unspecified protein-calorie malnutrition; N18.3 Chronic kidney disease, stage 3 (moderate); E53.8 Deficiency of other specified B group vitamins; E03.9 Hypothyroidism, unspecified; K21.9 Gastro-esophageal reflux disease without esophagitis; N40.0 Benign prostatic hyperplasia without lower urinary tract symptoms; N39.41 Urge incontinence; Z68.32 Body mass index [BMI] 32.0-32.9, adult; F39 Unspecified mood [affective] disorder; E86.0 Dehydration; Z79.899 Other long term (current) drug therapy; Z66 Do not resuscitate; R50.9 Fever, unspecified; D51.0 Vitamin B12 deficiency anemia due to intrinsic factor deficiency; R05 Cough; N40.1 Benign prostatic hyperplasia with lower urinary tract symptoms
CPT/HCPCS: 36415; 36430; 71010; 71020; 74230; 76770; 80048; 80053; 80069; 81001; 82274; 82607; 82728; 83540; 83550; 84443; 85025; 86850; 86900; 86901; 86920; 86922; 87040; 92526-GN; 92611-GN; 93005; 97161-GP; 97165-GO; 97535-GO; A9270-GY; J1644; J7120; P9016

== ENCOUNTER 2017-05-05 09:36 | Inpatient (IN) | payer MEDICARE, BC ==
[2017-05-05] MEDS ORDERED: Acetaminophen 325 MG Tab PO PRN (11:57)
[2017-05-05] MEDS: Citalopram 10 MG Tab PO SCH (12:19)
[2017-05-05] MEDS: Oxybutynin 5 MG Tab PO SCH (19:51)
[2017-05-05] MEDS: Tamsulosin 0.4 MG Cap.ER PO SCH (19:51)
[2017-05-05] MEDS: Aspirin/Dipyridamole 200-25 MG Cap.ER PO SCH (19:51)
[2017-05-05] MEDS: Vitamin B Complex Tab.ER PO SCH (19:51)
[2017-05-06] MEDS: Levothyroxine 25 MCG Tab PO SCH (05:59)
[2017-05-06] MEDS: Citalopram 10 MG Tab PO SCH (07:51)
[2017-05-06] MEDS: Calcium Citrate/Vitamin D3 315 MG-250 Unit Tab PO SCH (07:51)
[2017-05-06] MEDS: Vitamin B Complex Tab.ER PO SCH ×2 (07:51→19:42)
[2017-05-06] MEDS: Aspirin/Dipyridamole 200-25 MG Cap.ER PO SCH ×2 (07:52→19:42)
[2017-05-06] MEDS: Oxybutynin 5 MG Tab PO SCH ×2 (07:52→19:43)
[2017-05-06] MEDS: Cephalexin 500 MG Cap PO SCH ×2 (12:28→19:42)
[2017-05-06] MEDS: Tamsulosin 0.4 MG Cap.ER PO SCH (19:43)
[2017-05-06] MEDS: Triamcinolone Acetonide 0.1% Crm 15 GM Tube TOP PRN (20:16)
[2017-05-07] MEDS: Levothyroxine 25 MCG Tab PO SCH (06:16)
[2017-05-07] MEDS: Citalopram 10 MG Tab PO SCH (08:16)
[2017-05-07] MEDS: Vitamin B Complex Tab.ER PO SCH ×2 (08:16→20:25)
[2017-05-07] MEDS: Calcium Citrate/Vitamin D3 315 MG-250 Unit Tab PO SCH (08:18)
[2017-05-07] MEDS: Cephalexin 500 MG Cap PO SCH ×2 (08:19→20:25)
[2017-05-07] MEDS: Aspirin/Dipyridamole 200-25 MG Cap.ER PO SCH ×2 (08:20→20:25)
[2017-05-07] MEDS: Oxybutynin 5 MG Tab PO SCH ×2 (08:20→20:25)
[2017-05-07] MEDS: Tamsulosin 0.4 MG Cap.ER PO SCH (20:25)
[2017-05-07] MEDS: Triamcinolone Acetonide 0.1% Crm 15 GM Tube TOP PRN (20:25)
[2017-05-08] MEDS: Levothyroxine 25 MCG Tab PO SCH (06:33)
[2017-05-08] MEDS: Cephalexin 500 MG Cap PO SCH (07:37)
[2017-05-08] MEDS: Aspirin/Dipyridamole 200-25 MG Cap.ER PO SCH ×2 (07:37→19:54)
[2017-05-08] MEDS: Oxybutynin 5 MG Tab PO SCH ×2 (07:38→19:54)
[2017-05-08] MEDS: Calcium Citrate/Vitamin D3 315 MG-250 Unit Tab PO SCH (07:38)
[2017-05-08] MEDS: Citalopram 10 MG Tab PO SCH (07:38)
[2017-05-08] MEDS: Vitamin B Complex Tab.ER PO SCH ×2 (07:38→19:54)
--- NOTE | 2017-05-08 08:06 | PCM.SN ---
- Free Text/Narrative Note: S: I had been asked to review this patient's labs today as his provider is out of the office. I was also called by nursing staff overnight due to this patient having an episode of chest pain. He had complained of acute chest pain and shortness of breath. An EKG was done at the time of symptoms and was normal. At the time, his BP was significantly elevated. Within 15 minutes without intervention, his BP improved and his chest pain resolved. He denies any chest pain or shortness of breath this morning and is feeling well. O: Vitals reviewed. Heart: RRR with normal S1 and S2. No murmurs, gallops, or rubs. No pedal edema. Lungs: CTAB. Abdomen: Normoactive bowel sounds. Soft, nontender, nondistended. A/P: #1 Chest Pain - Unclear etiology but it is highly unlikely this was a serious cardiac event given such quick resolution without intervention. Possibly related to his BP but this has also improved significantly without intervention. - At this point, I would continue to observe. - If he has recurrence of symptoms, further intervention is warranted. #2 Hypertension - BP this morning is looking great. - Will not restart any medications. #3 Anemia - Hemoglobin continues on an upward trend. No need for further intervention at this time. 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 Presumed now that 2.5-2.8 is his new baseline and that the acute component during his last hospitalization was quite minimal. - No further intervention for this at this time. Fifi Dow MD
[2017-05-08] MEDS: Triamcinolone Acetonide 0.1% Crm 15 GM Tube TOP PRN ×2 (09:38→19:56)
[2017-05-08] MEDS: Tamsulosin 0.4 MG Cap.ER PO SCH (19:54)
[2017-05-08] MEDS: Cephalexin 250 MG Cap PO SCH (19:55)
[2017-05-09] MEDS: Levothyroxine 25 MCG Tab PO SCH (06:12)
[2017-05-09] MEDS: Citalopram 10 MG Tab PO SCH (07:35)
[2017-05-09] MEDS: Calcium Citrate/Vitamin D3 315 MG-250 Unit Tab PO SCH (07:35)
[2017-05-09] MEDS: Cephalexin 250 MG Cap PO SCH ×2 (07:36→20:04)
[2017-05-09] MEDS: Aspirin/Dipyridamole 200-25 MG Cap.ER PO SCH ×2 (07:36→20:04)
[2017-05-09] MEDS: Vitamin B Complex Tab.ER PO SCH ×2 (07:36→20:04)
[2017-05-09] MEDS: Oxybutynin 5 MG Tab PO SCH ×2 (07:37→20:04)
[2017-05-09] MEDS: Triamcinolone Acetonide 0.1% Crm 15 GM Tube TOP PRN (07:37)
[2017-05-09] MEDS: Tamsulosin 0.4 MG Cap.ER PO SCH (20:04)
[2017-05-10] MEDS: Levothyroxine 25 MCG Tab PO SCH (06:27)
[2017-05-10] MEDS: Calcium Citrate/Vitamin D3 315 MG-250 Unit Tab PO SCH (07:13)
[2017-05-10] MEDS: Aspirin/Dipyridamole 200-25 MG Cap.ER PO SCH ×2 (07:13→19:57)
[2017-05-10] MEDS: Oxybutynin 5 MG Tab PO SCH ×2 (07:13→19:57)
[2017-05-10] MEDS: Vitamin B Complex Tab.ER PO SCH ×2 (07:13→19:57)
[2017-05-10] MEDS: Cephalexin 250 MG Cap PO SCH ×2 (07:13→19:57)
[2017-05-10] MEDS: Citalopram 10 MG Tab PO SCH (07:13)
[2017-05-10] MEDS: Triamcinolone Acetonide 0.1% Crm 15 GM Tube TOP PRN ×2 (07:15→19:59)
[2017-05-10] MEDS: Tamsulosin 0.4 MG Cap.ER PO SCH (19:57)
[2017-05-11] MEDS: Levothyroxine 25 MCG Tab PO SCH (06:19)
[2017-05-11] MEDS: Calcium Citrate/Vitamin D3 315 MG-250 Unit Tab PO SCH (08:06)
[2017-05-11] MEDS: Aspirin/Dipyridamole 200-25 MG Cap.ER PO SCH ×2 (08:07→20:01)
[2017-05-11] MEDS: Vitamin B Complex Tab.ER PO SCH ×2 (08:07→20:01)
[2017-05-11] MEDS: Citalopram 10 MG Tab PO SCH (08:07)
[2017-05-11] MEDS: Triamcinolone Acetonide 0.1% Crm 15 GM Tube TOP PRN (08:08)
[2017-05-11] MEDS: Cephalexin 250 MG Cap PO SCH ×2 (08:08→20:01)
[2017-05-11] MEDS: Oxybutynin 5 MG Tab PO SCH ×2 (08:08→20:01)
[2017-05-11] MEDS: Tamsulosin 0.4 MG Cap.ER PO SCH (20:01)
[2017-05-12] MEDS: Levothyroxine 25 MCG Tab PO SCH (06:09)
[2017-05-12] MEDS: Calcium Citrate/Vitamin D3 315 MG-250 Unit Tab PO SCH (07:23)
[2017-05-12] MEDS: Vitamin B Complex Tab.ER PO SCH ×2 (07:23→19:33)
[2017-05-12] MEDS: Citalopram 10 MG Tab PO SCH (07:23)
[2017-05-12] MEDS: Triamcinolone Acetonide 0.1% Crm 15 GM Tube TOP PRN ×2 (07:24→19:34)
[2017-05-12] MEDS: Aspirin/Dipyridamole 200-25 MG Cap.ER PO SCH ×2 (07:24→19:34)
[2017-05-12] MEDS: Oxybutynin 5 MG Tab PO SCH ×2 (07:24→19:34)
[2017-05-12] MEDS: Cephalexin 250 MG Cap PO SCH ×2 (07:24→19:33)
[2017-05-12] MEDS: Tamsulosin 0.4 MG Cap.ER PO SCH (19:34)
--- NOTE | 2017-05-13 04:22 | PN ---
Progress Note for CONSUELO PINEDA Date: 05/12/2017 Room #: VM.203 SUBJECTIVE: This is an 82-year-old on swing bed after an acute stay for renal failure and anemia. He did receive a blood transfusion. He had lab work last Thursday, which showed hemoglobin improved up to 8.9. Creatinine had worsened down to 2.8, but has been stable since admission. He is eating and drinking okay. He has been incontinent of urine. He did have a left foot cellulitis last week on the 05/06/2017 and was started on Keflex. He will complete the course on the 05/13/2017. He has been afebrile. He offers no concerns, but he is quite upset that he is still in the hospital. His informed me, she did tell him that he would need to go to the care center. However, the patient denies that he knew that and did hit his fist on the chair. Per his , he refused to cooperate with therapy yesterday. He will require a level 2 screening. OBJECTIVE: Vital Signs: His temperature is 97.8, pulse 78, blood pressure 153/59, respiratory rate 18, O2 99% on room air. General: He is in no acute distress. Heart: Regular rate and rhythm. S1, S2 without murmur. Lungs: Lung sounds are clear to auscultation bilaterally without crackles or wheezes. Extremities: Warm and dry. No edema. Mental Status: He is alert. He is oriented that he is aware he is in the hospital. He knows who I am, but he was not able to say the date. His short- term memory is poor. ASSESSMENT AND PLAN: 1. Left lower extremity cellulitis on Keflex, improving. 2. Episode of chest pain. This was last week. He was evaluated with an EKG. He has had no further problems. 3. History of stroke with hemiparesis affecting the right side. Deficits for this were worsened by recent renal failure and anemia. The potential is there also for another stroke, but we have not done further investigations with an MRI. At this point, we would not change his treatment. He is already on Aggrenox. 4. History of acute on chronic anemia. We will check a hemoglobin tomorrow. Acute on chronic renal failure. We will check renal function tomorrow. 5. Hypothyroidism on treatment. 6. Mood disorder. He has been started on medications with Celexa. 7. Benign prostatic hypertrophy and overactive bladder. He is on oxybutynin and his Flomax. 8. Essential hypertension. Blood pressure is mildly elevated. He is on his Flomax. His ARB has been on hold due to renal failure. We will start him on low-dose Norvasc and watch for any leg swelling. 9. Mild malnutrition. We will continue to encourage p.o. intake. He is eating 100% of his meals. MKA: 05/12/2017 23:18:11 MODL: 05/13/2017 02:24:42 /[id number]
[2017-05-13] MEDS: Levothyroxine 25 MCG Tab PO SCH (06:20)
[2017-05-13] MEDS: amLODIPine 2.5 MG Tab PO SCH (08:04)
[2017-05-13] MEDS: Cephalexin 250 MG Cap PO SCH (08:04)
[2017-05-13] MEDS: Calcium Citrate/Vitamin D3 315 MG-250 Unit Tab PO SCH (08:05)
[2017-05-13] MEDS: Citalopram 10 MG Tab PO SCH (08:05)
[2017-05-13] MEDS: Triamcinolone Acetonide 0.1% Crm 15 GM Tube TOP PRN (08:05)
[2017-05-13] MEDS: Vitamin B Complex Tab.ER PO SCH ×2 (08:05→19:42)
[2017-05-13] MEDS: Oxybutynin 5 MG Tab PO SCH ×2 (08:05→19:42)
[2017-05-13] MEDS: Aspirin/Dipyridamole 200-25 MG Cap.ER PO SCH ×2 (08:05→19:42)
[2017-05-13] MEDS: Tamsulosin 0.4 MG Cap.ER PO SCH (19:42)
[2017-05-14 05:47] VITALS: BP 140/55
[2017-05-14] MEDS: Levothyroxine 25 MCG Tab PO SCH (06:15)
[2017-05-14] MEDS: Citalopram 10 MG Tab PO SCH (07:35)
[2017-05-14] MEDS: Oxybutynin 5 MG Tab PO SCH (07:35)
[2017-05-14] MEDS: Aspirin/Dipyridamole 200-25 MG Cap.ER PO SCH (07:35)
[2017-05-14] MEDS: amLODIPine 2.5 MG Tab PO SCH (07:35)
[2017-05-14] MEDS: Calcium Citrate/Vitamin D3 315 MG-250 Unit Tab PO SCH (07:35)
[2017-05-14] MEDS: Vitamin B Complex Tab.ER PO SCH (07:35)
--- NOTE | 2017-05-15 02:21 | DISCH ---
PRIMARY DISCHARGE DIAGNOSES: 1. Acute renal failure. 2. Acute on chronic anemia. 3. Generalized weakness with possible recent stroke. 4. Remote history of stroke with right hemiparesis. 5. Left lower extremity cellulitis treated, completed a course of Keflex yesterday. 6. Hypothyroidism on treatment. 7. Essential hypertension with elevated blood pressures due to stopping medications for renal failure, but improved blood pressures on discharge. 8. Mood disorder with agitation related to not wanting to go to the Care Center, wanting to go home, possibly some underlying dementia with behavioral disturbance. 9. An episode of chest pain evaluated. He had no further episodes. He has no documented coronary artery disease. 10.BPH with overactive bladder and urinary incontinence, long-standing. No evidence of significantly elevated postvoid residuals. 11.Mild malnutrition. REASON FOR ADMISSION: On the date of admission, this 82-year-old was admitted from [facility] to [facility] for further physical and occupational therapies. He did receive a blood transfusion while on [facility]. His lab work was monitored and was stable with a discharging creatinine of 2.7 and hemoglobin 8.8. Hemoccults were negative for blood in the stool. He did start to have some right leg redness and swelling. Therefore, he was treated with Keflex, this resolved. He did have a slight rash in that area and did receive some triamcinolone as needed. Otherwise, he had an uneventful stay. He was working with therapies, but he was getting frustrated when he could not do things and he was also very frustrated with the fact he was going to the Care Center. In fact, when I told him he would probably be there a couple weeks, he told me to get the heck out of the room. This behavior pattern had been ongoing. We had discussed with his . We started him on a small dose of Celexa 5 mg daily, which he was tolerating. He was also started on amlodipine 2.5 mg daily, which he was tolerating and blood pressure improved down to 140/55 on discharge. Otherwise, initially his bladder medications were held with the Ditropan. He was ruled out for UTI and Ditropan was restarted, but he still had urinary incontinence which is long-standing and he has followed up with Urology in the past. No MRIs or CTs were undertaken as the worsening of his condition with the lower extremity weakness, which was mostly bilateral, did start about 5 or 6 days prior to admission. DISCHARGE PLANS AND INSTRUCTIONS: The patient will be seen at [facility] at next group home rounds. He will have a BMP and CBC in 2 weeks. We will continue to hold lisinopril due to kidney problems. Routine blood pressure checks can be done at the group home. He will have a flu shot at the group home. PT/OT at the group home and he will continue Celexa for his moods. We will consider increasing that up to 10 mg daily in a couple weeks. Otherwise, he was evaluated by speech therapy. He had a video swallow. He had no difficulty with swallowing. He had chest x-rays which showed no pneumonia. PHYSICAL EXAMINATION: Vital signs: Discharging vitals include a temperature 97.6, pulse 84, blood pressure 140/55, respiratory rate 18, O2 97% on room air. General: He is in no acute distress. Heart: Regular rate and rhythm. Lungs: Sounds are clear to auscultation bilaterally without crackles or wheezes. Extremities: Warm and dry. No edema. Mental status: Alert and orientated x3. Should be noted that most of this exam was actually performed on the patient on 05/13, as he refused the majority of his physical exam today. Otherwise, he did become agitated when we talked about going to the group home. He thought he was going home today. He has been told at least 5 times that he is going to the Care Center. He made a fist and said swear words, this behavior has been present throughout his whole hospital stay, it does not seem to be escalating or worsening. He did have level 1 screening with manager social responsibility doing the appropriate paperwork filing for that as well, but they did not send anyone for an in-person evaluation. I personally do not feel that the patient is a danger to himself or others. MKA: 05/14/2017 08:31:28 MODL: 05/15/2017 02:12:36 /[id number]
== END 2017-05-14 08:55 | disposition home or self-care (01) | DRG 948 ==
LOC: VM.MS 09:37
PROVIDERS: ADMIT Internal Medicine; ATTEND Internal Medicine
DX: R53.1 Weakness (principal); I69.351 Hemiplegia and hemiparesis following cerebral infarction affecting right dominant side; L03.116 Cellulitis of left lower limb; E46 Unspecified protein-calorie malnutrition; N18.9 Chronic kidney disease, unspecified; D64.9 Anemia, unspecified; E03.9 Hypothyroidism, unspecified; I10 Essential (primary) hypertension; F39 Unspecified mood [affective] disorder; R07.9 Chest pain, unspecified; N40.1 Benign prostatic hyperplasia with lower urinary tract symptoms; N39.498 Other specified urinary incontinence
CPT/HCPCS: 36415; 80048; 85025; 93005; 97110-GP; 97116-GP; 97530-GP; 97535-GO; A9270-GY

== ENCOUNTER 2017-08-24 14:21 | Inpatient (IN) | payer MEDICARE, BC ==
[2017-08-24] MEDS ORDERED: Sodium Chloride 0.9% 10 ML Syringe FLUSH PRN ×2 (14:39→14:40)
[2017-08-24 15:40] LABS: CHLORIDE,CL 105 mmol/L (98-107); SODIUM,NA 142 mmol/L (136-145)
[2017-08-24] MEDS: Sodium Chloride 0.9% 1,000 ML IV SCH ×2 (16:00→23:14)
[2017-08-24] MEDS ORDERED: Bisacodyl 10 MG Supp RECTAL PRN (17:03)
[2017-08-24] MEDS ORDERED: Bisacodyl 5 MG Tab PO PRN (17:03)
[2017-08-24] MEDS ORDERED: Hydrocortisone 1% Crm 30 GM Tube TOP PRN (17:03)
[2017-08-24] MEDS ORDERED: Acetaminophen 325 MG Tab PO PRN (17:03)
--- NOTE | 2017-08-24 17:08 | EDM.PDOC ---
ED HPI GENERAL MEDICAL PROBLEM - General Chief Complaint: Fever Stated Complaint: POSSIBLE SEPSIS Time Seen by Provider: 08/24/17 14:30 Source of Information: Reports: Family, Half-Way Records History Limitations: Reports: No Limitations - History of Present Illness INITIAL COMMENTS - FREE TEXT/NARRATIVE: Pres[facility] to [facility] from [facility] with fever, weakness. Pt. is currently being treated for infected bunion of R great toe. The [facility] reports increased discharge from the area. Pt. has a history of dementia. He has been increasingly confused over the past several days. 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 - Related Data Allergies Allergy/AdvReac Type Severity Reaction Status Date / Time morphine AdvReac Confusion Verified 11/13/16 12:07 Home Meds: Home Meds Aspirin/Dipyridamole [Aggrenox 200-25 MG] 1 cap PO BID 08/28/13 [History] Calcium Citrate/Vitamin D3 [Citracal + D Maximum Caplet] 2 tab PO DAILY [History] Vitamin B Complex [B Complex] 1 tab PO BID 08/28/13 [History] Levothyroxine 50 mcg PO ACBREAKFAST 07/06/16 [History] Oxybutynin 5 mg PO BID 07/06/16 [History] Tamsulosin [Flomax] 0.4 mg PO BEDTIME 05/01/17 [History] Acetaminophen [Tylenol] 650 mg PO Q4H PRN #30 tablet 05/13/17 [Rx] Bisacodyl [Dulcolax] 5 mg PO DAILY PRN 08/24/17 [History] Bisacodyl [Dulcolax] 10 mg RECTAL DAILY PRN 08/24/17 [History] Citalopram [Celexa] 10 mg PO DAILY 08/24/17 [History] Hydrocortisone/Aloe Vera [Cortizone-10 1% Creme] 1 applicful TP BID PRN [History] amLODIPine [Norvasc] 5 mg PO DAILY 08/24/17 [History] Past Medical History HEENT History: Reports: Cataract, Hard of Hearing Cardiovascular History: Reports: Hypertension Genitourinary History: Reports: Acute Renal Failure, Prostate Disorder Other Musculoskeletal History: 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; post CVA Neurological History: Reports: CVA Other Neuro History: 10 years ago Psychiatric History: Reports: None Endocrine/Metabolic History: Reports: Hypothyroidism Hematologic History: Reports: Anemia Other Dermatologic History: open cyst to low posterior neckline; current upon admission - Past Surgical History HEENT Surgical History: Reports: Cataract Surgery GI Surgical History: Reports: Cholecystectomy, Hernia, Abdominal Male Surgical History: Reports: None Dermatological Surgical History: Reports: Other (See Below) Social & Family History - Tobacco Use Smoking Status *Q: Unknown Ever Smoked Second Hand Smoke Exposure: No - Caffeine Use Caffeine Use: Reports: Coffee - Recreational Drug Use Recreational Drug Use: No ED ROS GENERAL - Review of Systems Review Of Systems: See Below Constitutional: Reports: Fever, Chills, Malaise HEENT: Reports: No Symptoms Respiratory: Reports: Shortness of Breath, Cough Cardiovascular: Reports: No Symptoms Endocrine: Reports: No Symptoms GI/Abdominal: Reports: No Symptoms : Reports: No Symptoms Musculoskeletal: Reports: Other (evidence of recently infected bunion of R great toe) Skin: Reports: No Symptoms Neurological: Reports: No Symptoms Psychiatric: Reports: No Symptoms Hematologic/Lymphatic: Reports: No Symptoms Immunologic: Reports: No Symptoms ED EXAM, GENERAL - Physical Exam Exam: See Below Exam Limited By: No Limitations General Appearance: Alert, WD/WN, No Apparent Distress Nose: Normal Inspection, Normal Mucosa, No Blood Throat/Mouth: Normal Inspection, Normal Lips, Normal Teeth, Normal Gums, Normal Oropharynx, No Airway Compromise Head: Atraumatic, Normocephalic Neck: Normal Inspection, Supple Respiratory/Chest: Chest Non-Tender, Decreased Breath Sounds, Rhonchi Cardiovascular: Normal Peripheral Pulses, Regular Rate, Rhythm, No Edema, No JVD , No Murmur GI/Abdominal: Normal Bowel Sounds, Soft, Non-Tender, No Organomegaly, No Distention, No Abnormal Bruit Back Exam: Normal Inspection, Full Range of Motion Extremities: Normal Inspection, Normal Range of Motion, Non-Tender, No Pedal Edema, Normal Capillary Refill Neurological: Alert, Oriented, CN II-XII Intact, Normal Gait, Normal Reflexes Psychiatric: Normal Affect, Normal Mood Skin Exam: Warm, Dry, Intact, Normal Color Course - Vital Signs Last Recorded V/S: Last Vital Signs Temp 37.0 C 08/24/17 16:15 Pulse 88 08/24/17 16:15 Resp 24 H 08/24/17 16:15 BP 142/77 H 08/24/17 16:15 Pulse Ox 95 08/24/17 16:15 - Orders/Labs/Meds Orders: Active Orders 24 hr Category Date Time Status EKG Documentation Completion [RC] STAT Care 08/24/17 14:38 Ordered Chest 1V Frontal [CR] Stat Exams 08/24/17 15:38 Taken CULTURE BLOOD [BC] Stat Lab 08/24/17 14:45 Received CULTURE BLOOD [BC] Stat Lab 08/24/17 15:00 Received UA W/MICROSCOPIC [URIN] Stat Lab 08/24/17 14:37 Uncollected Sodium Chloride 0.9% [Normal Saline] 1,000 ml Med 08/24/17 16:00 Active IV ASDIRECTED Sodium Chloride 0.9% [Saline Flush] Med 08/24/17 14:39 Active 10 ml FLUSH ASDIRECTED PRN Blood Culture x2 Reflex Set [OM.PC] Stat Oth 08/24/17 14:39 Ordered Peripheral IV Insertion Adult [OM.PC] Routine Oth 08/24/17 14:39 Ordered Medication Orders Acetaminophen (Tylenol) 650 mg PO Q4H PRN PRN Reason: Pain Amlodipine Besylate (Norvasc) 5 mg PO DAILY [facility] Bisacodyl (Dulcolax) 5 mg PO DAILY PRN PRN Reason: Constipation Bisacodyl (Dulcolax) 10 mg RECTAL DAILY PRN PRN Reason: Constipation Calcium Citrate (Calcium Citrate + D) 2 tab PO DAILY [facility] Ceftriaxone Sodium (Rocephin) 1 gm IVPUSH DAILY [facility] Citalopram Hydrobromide (Celexa) 10 mg PO DAILY [facility] Dipyridamole/Aspirin (Aggrenox 200-25 Mg) 1 cap PO BID [facility] Sodium Chloride (Normal Saline) 1,000 mls @ 125 mls/hr IV ASDIRECTED [facility] Stop: 08/25/17 23:59 Last Admin: 08/24/17 16:00 Dose: 250 mls/hr Levothyroxine Sodium (Synthroid) 50 mcg PO ACBREAKFAST [facility] Non-Formulary Medication (Hydrocortisone/Aloe Vera [Cortizone-10 1% Creme]) 1 applicful TP BID PRN PRN Reason: Itching Non-Formulary Medication (Vitamin B Complex [B Complex]) 1 tab PO BID [facility] Ondansetron HCl (Zofran) 4 mg IVPUSH Q8H PRN PRN Reason: Nausea Oxybutynin Chloride (Oxybutynin) 5 mg PO BID [facility] Sodium Chloride (Saline Flush) 10 ml FLUSH ASDIRECTED PRN PRN Reason: Keep Vein Open Tamsulosin HCl (Flomax) 0.4 mg PO BEDTIME [facility] Labs: Laboratory Tests 08/24/17 08/24/17 08/24/17 Range/Units 14:45 14:45 14:45 WBC 19.2 H (4.0-10.0) x10^3/uL RBC 2.93 L (4.5-6.0) x10^6/uL Hgb 9.8 L (14.0-18.0) g/dL Hct 28.9 L (40.0-52.0) % MCV 98.6 H (78.0-93.0) fL MCH 33.4 H (26.0-32.0) pg MCHC 33.9 (32.0-36.0) g/dL RDW Coeff of Ra 12.1 (10.0-15.0) % Plt Count 303 (130-400) x10^3/uL Neut % (Auto) 84.5 H (50.0-80.0) % Lymph % (Auto) 5.4 L (25.0-50.0) % [place] % (Auto) 9.8 (2.0-11.0) % Eos % (Auto) 0.2 (0.0-4.0) % Baso % (Auto) 0.1 L (0.2-1.2) % PT 10.4 (9.8-11.8) SEC INR 1.0 L (2.0-3.5) Sodium 142 (136-145) mmol/L Potassium 3.9 (3.5-5.1) mmol/L Chloride 105 (98-107) mmol/L Carbon Dioxide 26 (21-32) mmol/L BUN 29 H (7-18) mg/dL Creatinine 2.4 H (0.70-1.30) mg/dL Est Cr Clr Drug Dosing TNP Estimated GFR (MDRD) 26 Glucose 121 H (74-106) mg/dL Lactic Acid (0.4-2.0) mmol/L Calcium 8.5 (8.5-10.1) mg/dL Corrected Calcium 9.06 (8.5-10.1) mg/dL Phosphorus 3.0 (2.6-4.7) mg/dL Magnesium 1.8 (1.8-2.4) mg/dL Total Bilirubin 0.3 (0.2-1.0) mg/dL AST 19 (15-37) U/L ALT 24 (16-63) U/L Alkaline Phosphatase 69 (46-116) U/L Troponin I < 0.017 (<=0.056) ng/mL C-Reactive Protein 1.9 H (<=0.9) mg/dL NT-Pro-B Natriuret Pep 880 H (<=450) pg/mL Total Protein 7.2 (6.4-8.2) g/dL Albumin 3.3 L (3.4-5.0) g/dL Globulin 3.9 Albumin/Globulin Ratio 0.85 08/24/17 Range/Units 14:45 WBC (4.0-10.0) x10^3/uL RBC (4.5-6.0) x10^6/uL Hgb (14.0-18.0) g/dL Hct (40.0-52.0) % MCV (78.0-93.0) fL MCH (26.0-32.0) pg MCHC (32.0-36.0) g/dL RDW Coeff of Ra (10.0-15.0) % Plt Count (130-400) x10^3/uL Neut % (Auto) (50.0-80.0) % Lymph % (Auto) (25.0-50.0) % [place] % (Auto) (2.0-11.0) % Eos % (Auto) (0.0-4.0) % Baso % (Auto) (0.2-1.2) % PT (9.8-11.8) SEC INR (2.0-3.5) Sodium (136-145) mmol/L Potassium (3.5-5.1) mmol/L Chloride (98-107) mmol/L Carbon Dioxide (21-32) mmol/L BUN (7-18) mg/dL Creatinine (0.70-1.30) mg/dL Est Cr Clr Drug Dosing Estimated GFR (MDRD) Glucose (74-106) mg/dL Lactic Acid 1.3 (0.4-2.0) mmol/L Calcium (8.5-10.1) mg/dL Corrected Calcium (8.5-10.1) mg/dL Phosphorus (2.6-4.7) mg/dL Magnesium (1.8-2.4) mg/dL Total Bilirubin (0.2-1.0) mg/dL AST (15-37) U/L ALT (16-63) U/L Alkaline Phosphatase (46-116) U/L Troponin I (<=0.056) ng/mL C-Reactive Protein (<=0.9) mg/dL NT-Pro-B Natriuret Pep (<=450) pg/mL Total Protein (6.4-8.2) g/dL Albumin (3.4-5.0) g/dL Globulin Albumin/Globulin Ratio Meds: Medications Generic Name Dose Route Start Last Admin Trade Name Freq PRN Reason Stop Dose Admin Acetaminophen 650 mg 08/24/17 17:03 Tylenol PO Q4H PRN Pain Amlodipine Besylate 5 mg 08/25/17 08:00 Norvasc PO DAILY [facility] Bisacodyl 5 mg 08/24/17 17:03 Dulcolax PO DAILY PRN Constipation Bisacodyl 10 mg 08/24/17 17:03 Dulcolax RECTAL DAILY PRN Constipation Calcium Citrate 2 tab 08/25/17 08:00 Calcium Citrate + D PO DAILY [facility] Ceftriaxone Sodium 1 gm 08/24/17 17:15 Rocephin IVPUSH DAILY [facility] Citalopram Hydrobromide 10 mg 08/25/17 08:00 Celexa PO DAILY [facility] Dipyridamole/Aspirin 1 cap 08/24/17 20:00 Aggrenox 200-25 Mg PO BID [facility] Sodium Chloride 1,000 mls @ 125 mls/hr 08/24/17 16:00 08/24/17 16:00 Normal Saline IV 08/25/17 23:59 250 mls/hr ASDIRECTED MAHOGANY Administration Levothyroxine Sodium 50 mcg 08/25/17 07:00 Synthroid PO ACBREAKFAST [facility] Non-Formulary Medication 1 applicful 08/24/17 17:03 Hydrocortisone/Aloe Vera [Cortizone-10 1% Creme] TP BID PRN Itching Non-Formulary Medication 1 tab 08/24/17 20:00 Vitamin B Complex [B Complex] PO BID [facility] Ondansetron HCl 4 mg 08/24/17 17:27 Zofran IVPUSH Q8H PRN Nausea Oxybutynin Chloride 5 mg 08/24/17 20:00 Oxybutynin PO BID [facility] Sodium Chloride 10 ml 08/24/17 14:39 Saline Flush FLUSH ASDIRECTED PRN Keep Vein Open Tamsulosin HCl 0.4 mg 08/24/17 20:00 Flomax PO BEDTIME [facility]ANY Discontinued Medications Generic Name Dose Route Start Last Admin Trade Name Freq PRN Reason Stop Dose Admin Sodium Chloride 10 ml 08/24/17 14:40 Saline Flush FLUSH ASDIRECTED PRN Keep Vein Open Departure - Departure Time of Disposition: 16:15 Disposition: Admitted As Inpatient 64 Clinical Impression: Pneumonia - Discharge Information - My Orders Last 24 Hours: My Active Orders 08/24/17 14:37 UA W/MICROSCOPIC [URIN] Stat 08/24/17 14:38 EKG Documentation Completion [RC] STAT 08/24/17 14:39 Sodium Chloride 0.9% [Saline Flush] 10 ml FLUSH ASDIRECTED PRN Blood Culture x2 Reflex Set [OM.PC] Stat Peripheral IV Insertion Adult [OM.PC] Routine 08/24/17 14:45 CULTURE BLOOD [BC] Stat 08/24/17 15:00 CULTURE BLOOD [BC] Stat 08/24/17 15:38 Chest 1V Frontal [CR] Stat 08/24/17 16:00 Sodium Chloride 0.9% [Normal Saline] 1,000 ml IV ASDIRECTED - Assessment/Plan Last 24 Hours: My Active Orders 08/24/17 14:37 UA W/MICROSCOPIC [URIN] Stat 08/24/17 14:38 EKG Documentation Completion [RC] STAT 08/24/17 14:39 Sodium Chloride 0.9% [Saline Flush] 10 ml FLUSH ASDIRECTED PRN Blood Culture x2 Reflex Set [OM.PC] Stat Peripheral IV Insertion Adult [OM.PC] Routine 08/24/17 14:45 CULTURE BLOOD [BC] Stat 08/24/17 15:00 CULTURE BLOOD [BC] Stat 08/24/17 15:38 Chest 1V Frontal [CR] Stat 08/24/17 16:00 Sodium Chloride 0.9% [Normal Saline] 1,000 ml IV ASDIRECTED
[2017-08-24] MEDS ORDERED: Ondansetron 4 MG/2 ML SDV IVPUSH PRN ×3 (17:27→23:11)
[2017-08-24] MEDS: cefTRIAXone 1 GM Vial IVPUSH SCH (17:58)
--- NOTE | 2017-08-24 18:54 | HP ---
CHIEF COMPLAINT: Not feeling well, vomiting and fever. HISTORY OF PRESENT ILLNESS: This is an 82-year-old male who was started on Augmentin yesterday due to a right foot infection. The foot infection is improving, but his is concerned the Augmentin caused him to be sick. She says when she got there at 10:30 this morning he was just not himself. He had thrown up some cranberry juice all over his shirt. He did not even feel like playing cards, then he had a fall where he slid out of bed, but he does have quite a few falls at the [facility]. Blood pressure was quite high like 200, but he does get quite agitated after the fall. Then, his temperature was 100.7, so staff contacted me and I gave the okay to come down to the emergency room. Wrad himself denies any problems. He usually tends to minimize things. He does not like to be in the hospital. His x-ray in the ER did not show any pneumonia. There have been no reports of cough by the patient or his . He denies any abdominal pain. He does have some chronic urinary retention and a stricture. He was admitted back in April from home and eventually went to the [facility] then, he had acute renal failure at that point, he had some BPH with urinary incontinence, but did not have any postvoid residuals that were elevated. His creatinine on discharge was 2.7, but it was up over 3 on admission. His hemoglobin was also low at that point, it is quite stable now. ALLERGIES: Morphine. MEDICATIONS: His medication list is reviewed, does show him to be on Tylenol 650 q.4 hours p.r.n., Norvasc 5 mg daily, Aggrenox 1 b.i.d., Dulcolax daily p.r.n., calcium and vitamin D, Celexa 10 mg daily, hydrocortisone aloe vera cream to the back b.i.d. p.r.n. for itching, levothyroxine 50 mcg daily, oxybutynin 5 mg b.i.d., Flomax 0.4 mg at bedtime, vitamin B complex. PAST MEDICAL HISTORY: Includes history of stroke with right hemiparesis; essential hypertension; B12 deficiency; hypothyroidism; prediabetes; GERD; BPH; chronic renal insufficiency, previous baseline creatinine 1.2-1.6; urinary urge incontinence; pernicious anemia. PAST SURGICAL HISTORY: He had cholecystectomy and rotator cuff repair. FAMILY HISTORY: Mother at 89 of old age. Daughter who is living has had thyroid cancer. Father at 98 of old age. SOCIAL HISTORY: He is to his , Mehrdad, she took care of him at home until [facility] when [facility]. He does not smoke or drink. 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 REVIEW OF SYSTEMS: Constitutional: There have been no reports of weight gain. He denies chills. He has had fever just starting today. HEENT: No sore throat. No congestion. Cardiac: No chest pain. No palpitations. Respiratory: No cough. No shortness of breath. Abdomen: Denies abdominal pain. No diarrhea noted. He has regular, having bowel movements each evening, last bowel movement yesterday. He has vomited several times today. : He denies any dysuria. Skin: He does have a sore on his right foot, a very small ulcer. No drainage currently. No redness. Otherwise, all systems reviewed and found to be negative unless otherwise stated. PHYSICAL EXAMINATION: Vital Signs: Weight 81.3 kg; blood pressure 142/77; temperature 98.6, on arrival 100.1; pulse 88; respiratory rate 24; O2 95% on room air. General: He is in no acute distress. Heart: Regular rate and rhythm. S1, S2 without murmur. Lungs: Lung sounds are clear to auscultation bilaterally without crackles or wheezes. Abdomen: Nondistended, nontender. Positive bowel sounds. Extremities: Warm and dry, no edema. Mental Status: He is alert, he jokes. I asked him, "how do you feel?" He says with my hands, but he really did not go and answer all orientation questions appropriately overall. Skin: Slightly pale. Psych: He does not appear overly anxious. At the [facility], he has had a couple of episodes where he gets frustrated at staff or himself. LABORATORY DATA: Lab work reviewed. White count 19.2, hemoglobin 9.8, platelets 303. INR 1. Sodium 142, potassium 3.9, chloride 105, bicarb 26, BUN 29, creatinine 2.4, glucose 121. ALT, AST normal. Troponin normal. CRP is 1.9. ProBNP 880. Albumin 3.3, improved from 2.6 on the last admission. UA, pending. Chest x-ray is negative for any infiltrates. ASSESSMENT AND PLAN: 1. Fever, leukocytosis, and tachycardia, at least systemic inflammatory response syndrome. Possible source could be a urinary tract infection. His foot sore does not look bad enough to cause any kind of infection. He may have just gotten sick also from the Augmentin, it caused some vomiting. At this point, I am going to cover him with IV Rocephin to cover that foot infection. I do not feel this is a víctor sepsis and therefore I am not going to plan on repeating a lactic acid. I will repeat all lab work tomorrow. We will slow down his IV fluids to 125 an hour. We will do a bladder scan and straight cath if needed to get the UA, but he should be covered well with Rocephin. 2. Chronic kidney disease. Creatinine 2.4, at baseline. 3. Chronic anemia. Hemoglobin 9.8, which is near baseline. 4. Mild malnutrition. 5. History of stroke with right hemiparesis. 6. Benign prostatic hypertrophy. 7. History of gastroesophageal reflux disease and hypothyroidism, prediabetes, B12 deficiency, and essential hypertension, under fair control. PLAN: At this point, we will continue his home medications. We will have Zofran available for nausea. We will keep him on IV Rocephin and await urine and cultures. I do not see anything on the wound culture; actually on exam, there is just a slight 2 mm scab noted with just minimal redness, no warmth, no drainage. For DVT prophylaxis based on his renal function, I will put him on heparin twice daily. He will be a code level 3. Anticipate at least a 2-night stay and then discharge back to [facility] when stable. MKA: 08/24/2017 17:27:13 MODL: 08/24/2017 18:48:09 /[id number]
[2017-08-24] MEDS: Aspirin/Dipyridamole 200-25 MG Cap.ER PO SCH (20:19)
[2017-08-24] MEDS: Oxybutynin 5 MG Tab PO SCH (20:19)
[2017-08-24] MEDS: Tamsulosin 0.4 MG Cap.ER PO SCH (20:19)
[2017-08-24] MEDS ORDERED: LORazepam 2 MG/ML MDV IVPUSH PRN ×2 (22:54→23:13)
[2017-08-24] MEDS ORDERED: LORazepam 0.5 MG Tab PO PRN ×2 (22:58→23:11)
[2017-08-25] MEDS: Levothyroxine 50 MCG Tab PO SCH (07:48)
[2017-08-25] MEDS: Calcium Citrate/Vitamin D3 315 MG-250 Unit Tab PO SCH (07:49)
[2017-08-25] MEDS: Oxybutynin 5 MG Tab PO SCH ×2 (07:49→19:39)
[2017-08-25] MEDS: Aspirin/Dipyridamole 200-25 MG Cap.ER PO SCH ×2 (07:49→19:39)
[2017-08-25] MEDS: Vitamin B Complex Tab.ER PO SCH (07:49)
[2017-08-25] MEDS: Citalopram 10 MG Tab PO SCH (07:49)
[2017-08-25] MEDS: cefTRIAXone 1 GM Vial IVPUSH SCH (07:49)
[2017-08-25] MEDS ORDERED: amLODIPine 2.5 MG Tab PO SCH (08:00)
--- NOTE | 2017-08-25 15:50 | PN ---
Progress Note for CONSUELO PINEDA Date: 08/25/2017 Room #: VM.201 SUBJECTIVE: Hospital day #2 on an 82-year-old admitted with vomiting, fever, and leukocytosis. He was found to have a UTI. He also had been treated with Augmentin for a foot infection. He has had a previous cellulitis there that seems to be improving. His white count improved today. He has been afebrile. He denies any coughing or trouble breathing. He has had no further abdominal pain or nausea. OBJECTIVE: Vital Signs: His temperature is 98.2, pulse 76, blood pressure 148/84, respiratory rate 20, O2 of 92% on room air. General: He is in no acute distress. Heart: Regular rate and rhythm. Lungs: Sounds are clear to auscultation bilaterally without crackles or wheezes. Abdomen: Nondistended, nontender. Extremities: Warm and dry. No edema. He did have a postvoid residual of 400, but then he was able to void out over 200. LABORATORY DATA: Lab work does show improvement 13.4 on his white count, hemoglobin down to 8.1, platelets 260. Sodium 143, potassium 4.3, chloride 109, bicarb 26, BUN 26, creatinine 2.2, calcium 7.6, albumin yesterday 3.3. ASSESSMENT: 1. An episode of systemic inflammatory response syndrome likely related to urinary tract infection, clinically improving. Urine culture pending. He is on IV Rocephin. 2. Chronic kidney disease. Creatinine is stable. We will stop IV fluids. 3. Acute on chronic anemia, probably due to hemodilution. We will recheck tomorrow. 4. Mild malnutrition and mild hypocalcemia. We will continue to monitor and encourage p.o. intake. 5. History of stroke with right hemiparesis. 6. Adjustment disorder due to being in the senior care. The patient has not had any significant behaviors here. He is on Celexa. He was a little bit anxious last night, an Ativan was ordered. 7. Benign prostatic hypertrophy. No significant residuals. 8. History of gastroesophageal reflux disease, hypothyroidism, prediabetes, B12 deficiency, and essential hypertension under fair control. PLAN: The patient will continue acute cares. I will continue the IV Rocephin. He will continue heparin for DVT prophylaxis. Anticipate, he will hopefully be improved to return back to [facility] tomorrow with oral Keflex or other antibiotics that he may tolerate better than the Augmentin. His was also updated today. MKA: 08/25/2017 14:24:54 MODL: 08/25/2017 14:41:52 /[id number]
[2017-08-25] MEDS: Tamsulosin 0.4 MG Cap.ER PO SCH (19:39)
[2017-08-26] MEDS: cefTRIAXone 1 GM Vial IVPUSH SCH (07:50)
[2017-08-26] MEDS: Aspirin/Dipyridamole 200-25 MG Cap.ER PO SCH (07:51)
[2017-08-26] MEDS: Calcium Citrate/Vitamin D3 315 MG-250 Unit Tab PO SCH (07:51)
[2017-08-26] MEDS: Vitamin B Complex Tab.ER PO SCH (07:51)
[2017-08-26] MEDS: Oxybutynin 5 MG Tab PO SCH (07:52)
[2017-08-26] MEDS: Levothyroxine 50 MCG Tab PO SCH (07:52)
[2017-08-26] MEDS: Citalopram 10 MG Tab PO SCH (07:52)
[2017-08-26] MEDS ORDERED: amLODIPine 5 MG Tab PO SCH (08:00)
[2017-08-26 10:27] VITALS: BP 178/84
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
== END 2017-08-26 13:40 | DRG 690 ==
LOC: VM.ED 14:21 → VM.MS 16:00
PROVIDERS: ADMIT Internal Medicine; ATTEND Internal Medicine
DX: J18.9 Pneumonia, unspecified organism (principal); I10 Essential (primary) hypertension; N42.9 Disorder of prostate, unspecified; N39.0 Urinary tract infection, site not specified; R65.10 Systemic inflammatory response syndrome (SIRS) of non-infectious origin without acute organ dysfunction; Z86.73 Personal history of transient ischemic attack (TIA), and cerebral infarction without residual deficits; E46 Unspecified protein-calorie malnutrition; I69.351 Hemiplegia and hemiparesis following cerebral infarction affecting right dominant side; N18.4 Chronic kidney disease, stage 4 (severe); E83.51 Hypocalcemia; L08.9 Local infection of the skin and subcutaneous tissue, unspecified; R50.9 Fever, unspecified; D72.829 Elevated white blood cell count, unspecified; R00.0 Tachycardia, unspecified; I12.9 Hypertensive chronic kidney disease with stage 1 through stage 4 chronic kidney disease, or unspecified chronic kidney disease; D64.9 Anemia, unspecified; N40.0 Benign prostatic hyperplasia without lower urinary tract symptoms; K21.9 Gastro-esophageal reflux disease without esophagitis; E03.9 Hypothyroidism, unspecified; E53.8 Deficiency of other specified B group vitamins; R11.10 Vomiting, unspecified; F43.20 Adjustment disorder, unspecified; F03.90 Unspecified dementia, unspecified severity, without behavioral disturbance, psychotic disturbance, mood disturbance, and anxiety; H54.7 Unspecified visual loss; Z88.6 Allergy status to analgesic agent; Z79.82 Long term (current) use of aspirin; Z79.899 Other long term (current) drug therapy
CPT/HCPCS: 36415; 71045; 80048; 80053; 81001; 83605; 83735; 83880; 84100; 84484; 85025; 85610; 86140; 87040; 87804; 93005; 99284-GF; 99285; A9270-GY; J0696; J2060; J2405; J7030; J7050

== ENCOUNTER 2018-12-13 21:01 | Emergency (ER) | payer MEDICARE, MEDICAID ==
[2018-12-13] MEDS ORDERED: Sodium Chloride 0.9% 10 ML Syringe FLUSH PRN (21:11)
[2018-12-13] MEDS ORDERED: LORazepam 2 MG/ML SDV IVPUSH ONE (21:26)
--- NOTE | 2018-12-13 21:30 | EDM.PDOC ---
ED HPI GENERAL MEDICAL PROBLEM - General Chief Complaint: General Stated Complaint: blood pressure, decreased LOC Time Seen by Provider: 12/13/18 21:09 Source of Information: Reports: EMS, Family, Half-Way Records History Limitations: Reports: Altered Mental Status - History of Present Illness INITIAL COMMENTS - FREE TEXT/NARRATIVE: Patient brought in via EMS from the [facility] with report of hypertension. Family states they brought him home to spend the day over the weekend and when they brought him back he told his that he thought he was getting to come home. This was Thursday. Today when seen his and daughter state he had some personality changes, weakness, and fast breathing. His blood pressure was also elevated. He is unable to answer my ROS questions. - Related Data Allergies Allergy/AdvReac Type Severity Reaction Status Date / Time morphine AdvReac Confusion Verified 11/13/16 12:07 Home Meds: Home Meds Aspirin/Dipyridamole [Aggrenox 200-25 MG] 1 cap PO BID 08/28/13 [History] Calcium Citrate/Vitamin D3 [Citracal + D Maximum Caplet] 2 tab PO DAILY [History] Vitamin B Complex [B Complex] 1 tab PO BID 08/28/13 [History] Levothyroxine 50 mcg PO ACBREAKFAST 07/06/16 [History] Oxybutynin 5 mg PO BID 07/06/16 [History] Tamsulosin [Flomax] 0.4 mg PO BEDTIME 05/01/17 [History] Acetaminophen [Tylenol] 650 mg PO Q4H PRN #30 tablet 05/13/17 [Rx] Bisacodyl [Dulcolax] 5 mg PO DAILY PRN 08/24/17 [History] Bisacodyl [Dulcolax] 10 mg RECTAL DAILY PRN 08/24/17 [History] Citalopram [Celexa] 10 mg PO DAILY 08/24/17 [History] Hydrocortisone/Aloe Vera [Cortizone-10 1% Creme] 1 applicful TP BID PRN [History] amLODIPine [Norvasc] 5 mg PO DAILY 08/24/17 [History] Cephalexin [Keflex] 250 mg PO QID #12 capsule 08/26/17 [Rx] Past Medical History HEENT History: Reports: Cataract, Hard of Hearing Cardiovascular History: Reports: Hypertension Genitourinary History: Reports: Acute Renal Failure, Prostate Disorder Musculoskeletal History: Reports: Other (See Below) Other Musculoskeletal History: 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; post CVA Neurological History: Reports: CVA Other Neuro History: 10 years ago Psychiatric History: Reports: None Endocrine/Metabolic History: Reports: Hypothyroidism Other Endocrine/Metabolic History: prediabetes (per chart) Hematologic History: Reports: Anemia Dermatologic History: Reports: None Other Dermatologic History: open cyst to low posterior neckline; current upon admission - Past Surgical History HEENT Surgical History: Reports: Cataract Surgery GI Surgical History: Reports: Cholecystectomy, Hernia, Abdominal Male Surgical History: Reports: None Social & Family History - Caffeine Use Caffeine Use: Reports: Coffee ED ROS GENERAL - Review of Systems Review Of Systems: Unable To Obtain ED EXAM, GENERAL - Physical Exam Exam: See Below Exam Limited By: Physical Impairment General Appearance: Alert, Anxious, Mild Distress Eye Exam: Bilateral Eye: EOMI, PERRL Ears: Normal TMs Nose: Normal Inspection, Normal Mucosa, No Blood Throat/Mouth: Normal Inspection, Normal Lips, Normal Teeth, Normal Gums, Normal Oropharynx, Normal Voice, No Airway Compromise Head: Atraumatic, Normocephalic Neck: Normal Inspection, Supple, Non-Tender, Full Range of Motion Respiratory/Chest: No Respiratory Distress, No Accessory Muscle Use, Rales Cardiovascular: Normal Peripheral Pulses, Regular Rate, Rhythm Peripheral Pulses: 1+: Posterior Tibial (L), Posterior Tibial (R), Dorsalis Pedis (L), Dorsalis Pedis (R) GI/Abdominal: Normal Bowel Sounds, Soft, Non-Tender, No Organomegaly, No Distention Back Exam: Normal Inspection, Full Range of Motion Extremities: Pedal Edema (2-3+ bilateral pitting edema) Neurological: Alert, Slow to Respond, Unresponsive. No: Oriented, CN II-XII Intact, Normal Cognition, Normal Gait, Normal Reflexes Psychiatric: Anxious Course - Orders/Labs/Meds Orders: Active Orders 24 hr Category Date Time Status EKG Documentation Completion [RC] STAT Care 12/13/18 21:11 Active Chest 1V Frontal [CR] Stat Exams 12/13/18 21:11 Ordered Head wo Cont [CT] Stat Exams 12/13/18 21:26 Ordered CULTURE BLOOD [BC] Stat Lab 12/13/18 21:29 Ordered CULTURE BLOOD [BC] Stat Lab 12/13/18 21:29 Ordered Sodium Chloride 0.9% [Saline Flush] Med 12/13/18 21:11 Active 10 ml FLUSH ASDIRECTED PRN Blood Culture x2 Reflex Set [OM.PC] Stat Oth 12/13/18 21:29 Ordered Saline Lock Insert [OM.PC] Routine Oth 12/13/18 21:11 Ordered Medication Orders Sodium Chloride (Saline Flush) 10 ml FLUSH ASDIRECTED PRN PRN Reason: Keep Vein Open Labs: Laboratory Tests 12/13/18 12/13/18 12/13/18 Range/Units 21:50 21:50 21:50 WBC 14.6 H (4.0-10.0) x10^3/uL RBC 4.07 L (4.5-6.0) x10^6/uL Hgb 12.9 L D (14.0-18.0) g/dL Hct 38.8 L (40.0-52.0) % MCV 95.3 H D (78.0-93.0) fL MCH 31.7 (26.0-32.0) pg MCHC 33.2 (32.0-36.0) g/dL RDW Coeff of Ra 12.7 (10.0-15.0) % Plt Count 298 (130-400) x10^3/uL Neut % (Auto) 82.2 H (50.0-80.0) % Lymph % (Auto) 7.7 L (25.0-50.0) % Fountain % (Auto) 9.2 (2.0-11.0) % Eos % (Auto) 0.7 (0.0-4.0) % Baso % (Auto) 0.2 (0.2-1.2) % PT 10.3 (10.0-12.8) SEC INR 0.9 L (2.0-3.5) Sodium 142 (136-145) mmol/L Potassium 4.2 (3.5-5.1) mmol/L Chloride 104 (98-107) mmol/L Carbon Dioxide 28 (21-32) mmol/L Anion Gap 14.2 (10-20) mmol/L BUN 36 H (7-18) mg/dL Creatinine 2.3 H (0.70-1.30) mg/dL Est Cr Clr Drug Dosing TNP Estimated GFR (MDRD) 27 Glucose 184 H (74-106) mg/dL Lactic Acid (0.4-2.0) mmol/L Calcium 8.6 (8.5-10.1) mg/dL Corrected Calcium 9.32 (8.5-10.1) mg/dL Total Bilirubin 0.3 (0.2-1.0) mg/dL AST 17 (15-37) U/L ALT 25 (16-63) U/L Alkaline Phosphatase 95 (46-116) U/L Creatine Kinase 49 (39-308) U/L Troponin I 0.023 (<=0.056) ng/mL NT-Pro-B Natriuret Pep 820 H (<=450) pg/mL Total Protein 7.6 (6.4-8.2) g/dL Albumin 3.1 L (3.4-5.0) g/dL Globulin 4.5 Albumin/Globulin Ratio 0.69 Urine Color (YELLOW) Urine Appearance (CLEAR) Urine pH (5.0-8.0) Ur Specific [place] Urine Protein (NEGATIVE) mg/dL Urine Glucose (UA) (NEGATIVE) mg/dL Urine Ketones (NEGATIVE) mg/dL Urine Occult Blood (NEGATIVE) Urine Nitrite (NEGATIVE) Urine Bilirubin (NEGATIVE) Urine Urobilinogen (0.2) EU/dL Ur Leukocyte Esterase (NEGATIVE) Urine RBC (NOT SEEN) /HPF Urine WBC (NOT SEEN) /HPF Ur Squamous Epith Cells (NEGATIVE) /HPF Amorphous Sediment Urine Bacteria (NEGATIVE) /HPF Hyaline Casts (NEGATIVE) /HPF Urine Mucus (NEGATIVE) /LPF 12/13/18 12/13/18 Range/Units 21:50 23:05 WBC (4.0-10.0) x10^3/uL RBC (4.5-6.0) x10^6/uL Hgb (14.0-18.0) g/dL Hct (40.0-52.0) % MCV (78.0-93.0) fL MCH (26.0-32.0) pg MCHC (32.0-36.0) g/dL RDW Coeff of Ra (10.0-15.0) % Plt Count (130-400) x10^3/uL Neut % (Auto) (50.0-80.0) % Lymph % (Auto) (25.0-50.0) % Fountain % (Auto) (2.0-11.0) % Eos % (Auto) (0.0-4.0) % Baso % (Auto) (0.2-1.2) % PT (10.0-12.8) SEC INR (2.0-3.5) Sodium (136-145) mmol/L Potassium (3.5-5.1) mmol/L Chloride (98-107) mmol/L Carbon Dioxide (21-32) mmol/L Anion Gap (10-20) mmol/L BUN (7-18) mg/dL Creatinine (0.70-1.30) mg/dL Est Cr Clr Drug Dosing Estimated GFR (MDRD) Glucose (74-106) mg/dL Lactic Acid 2.0 (0.4-2.0) mmol/L Calcium (8.5-10.1) mg/dL Corrected Calcium (8.5-10.1) mg/dL Total Bilirubin (0.2-1.0) mg/dL AST (15-37) U/L ALT (16-63) U/L Alkaline Phosphatase (46-116) U/L Creatine Kinase (39-308) U/L Troponin I (<=0.056) ng/mL NT-Pro-B Natriuret Pep (<=450) pg/mL Total Protein (6.4-8.2) g/dL Albumin (3.4-5.0) g/dL Globulin Albumin/Globulin Ratio Urine Color Yellow (YELLOW) Urine Appearance Clear (CLEAR) Urine pH 6.0 (5.0-8.0) Ur Specific [place] 1.020 Urine Protein >=300 H (NEGATIVE) mg/dL Urine Glucose (UA) Negative (NEGATIVE) mg/dL Urine Ketones Negative (NEGATIVE) mg/dL Urine Occult Blood Trace-intact H (NEGATIVE) Urine Nitrite Negative (NEGATIVE) Urine Bilirubin Negative (NEGATIVE) Urine Urobilinogen 0.2 (0.2) EU/dL Ur Leukocyte Esterase Negative (NEGATIVE) Urine RBC 0-5 (NOT SEEN) /HPF Urine WBC 0-5 (NOT SEEN) /HPF Ur Squamous Epith Cells Rare (NEGATIVE) /HPF Amorphous Sediment Few Urine Bacteria Not seen (NEGATIVE) /HPF Hyaline Casts Moderate H (NEGATIVE) /HPF Urine Mucus Rare H (NEGATIVE) /LPF Meds: Medications Generic Name Dose Route Start Last Admin Trade Name Freq PRN Reason Stop Dose Admin Sodium Chloride 10 ml 12/13/18 21:11 Saline Flush FLUSH ASDIRECTED PRN Keep Vein Open Discontinued Medications Generic Name Dose Route Start Last Admin Trade Name Freq PRN Reason Stop Dose Admin Ceftriaxone Sodium 2 gm 12/13/18 22:45 12/13/18 23:25 Rocephin IVPUSH 12/13/18 22:46 2 gm STAT ONE Administration Lorazepam 0.5 mg 12/13/18 21:26 12/13/18 21:50 Ativan IVPUSH 12/13/18 21:27 0.5 mg ONETIME ONE Administration Departure - Departure Time of Disposition: 00:38 Disposition: Home, Self-Care 01 Condition: Good Clinical Impression: Hypertension, Anxiety - Discharge Information *PRESCRIPTION DRUG MONITORING PROGRAM REVIEWED*: Not Applicable *COPY OF PRESCRIPTION DRUG MONITORING REPORT IN PATIENT BONNY: Not Applicable Referrals: Deborah Leo, DO [Primary Care Provider] - Forms: ED Department Discharge Additional Instructions: Plan 1. Return to care center this evening 2. Continue to monitor patient for any blood pressure changes, or signs of infection 3. Labwork and radiology imaging did not show acute cause of infection 4. Review of blood cultures when available. Results to Dr. Deborah Leo 5. Call if any additional questions or concerns ED Communication - ED Communication Date/Time Date: 12/13/18 Time Called: 23:30 - Discussed Case With (1) Discussed Case With (1): Other (Dr. Deborah Leo was consulted and feels that it is appropriate to send him back to care center with close follow up over the next few days) - Problem List & Annotations (1) Anxiety SNOMED Code(s): 40361497 Code(s): F41.9 - ANXIETY DISORDER, UNSPECIFIED Status: Acute Priority: Low Current Visit: Yes (2) Hypertension SNOMED Code(s): 92283525 Code(s): I10 - ESSENTIAL (PRIMARY) HYPERTENSION Status: Chronic Priority : Medium Current Visit: Yes Qualifiers: Hypertension type: essential hypertension Qualified Code(s): I10 - Essential (primary) hypertension - Problem List Review Problem List Initiated/Reviewed/Updated: Yes - My Orders Last 24 Hours: My Active Orders 12/13/18 21:11 EKG Documentation Completion [RC] STAT Chest 1V Frontal [CR] Stat Sodium Chloride 0.9% [Saline Flush] 10 ml FLUSH ASDIRECTED PRN Saline Lock Insert [OM.PC] Routine 12/13/18 21:26 Head wo Cont [CT] Stat 12/13/18 21:29 CULTURE BLOOD [BC] Stat CULTURE BLOOD [BC] Stat Blood Culture x2 Reflex Set [OM.PC] Stat - Assessment/Plan Last 24 Hours: My Active Orders 12/13/18 21:11 EKG Documentation Completion [RC] STAT Chest 1V Frontal [CR] Stat Sodium Chloride 0.9% [Saline Flush] 10 ml FLUSH ASDIRECTED PRN Saline Lock Insert [OM.PC] Routine 12/13/18 21:26 Head wo Cont [CT] Stat 12/13/18 21:29 CULTURE BLOOD [BC] Stat CULTURE BLOOD [BC] Stat Blood Culture x2 Reflex Set [OM.PC] Stat Assessment:: hypertension anxiety Plan: Plan 1. Return to care center this evening 2. Continue to monitor patient for any blood pressure changes, or signs of infection 3. Labwork and radiology imaging did not show acute cause of infection 4. Review of blood cultures when available. Results to Dr. Deborah Leo 5. Call if any additional questions or concerns
[2018-12-13 22:33] LABS: CHLORIDE,CL 104 mmol/L (98-107); SODIUM,NA 142 mmol/L (136-145)
[2018-12-13 22:34] LABS: ANION GAP 14.2 mmol/L (10-20)
[2018-12-13] MEDS ORDERED: cefTRIAXone 2 GM Vial IVPUSH ONE (22:45)
[2018-12-14 03:33] VITALS: BP 198/86
--- NOTE | 2018-12-14 08:05 | CT ---
[id number] CT/CT Head WO IV EXAM: CT Head WO IV CLINICAL DATA: CHANGE IN MENTAL STATUS COMPARISON: NO PREVIOUS SIMILAR EXAM IS AVAILABLE FOR COMPARISON. FINDINGS: Motion artifact was encountered. There is no mass or mass effect. There is no hemorrhage. The ventricles are more prominent than the cortical sulci.. There are no extra-axial fluid collections. There are no sites of abnormal attenuation. IMPRESSION: Question of normal pressure hydrocephalus. Motion artifact. David Holt MD 12/14/18 0805 Thank you for allowing us to participate in the care of your patient.
--- NOTE | 2018-12-14 08:16 | CR ---
[id number] RAD/RAD Chest PA or AP 1V EXAM: SINGLE VIEW CHEST. INDICATION: SHORTNESS OF BREATH COMPARISON: CORRELATION IS MADE WITH THE EXAM OF AUGUST 24, 2017. FINDINGS: The lungs are clear. The cardiomediastinal contour is prominent but stable. IMPRESSION: NO PNEUMONIA OR EDEMA. David Holt MD 12/14/18 0815 Thank you for allowing us to participate in the care of your patient.
== END 2018-12-14 00:35 | disposition home or self-care (01) ==
LOC: VM.ED 21:01
DX: F41.9 Anxiety disorder, unspecified (principal); I10 Essential (primary) hypertension; E03.9 Hypothyroidism, unspecified; Z86.73 Personal history of transient ischemic attack (TIA), and cerebral infarction without residual deficits; Z79.899 Other long term (current) drug therapy; Z79.82 Long term (current) use of aspirin; Z88.5 Allergy status to narcotic agent
CPT/HCPCS: 36415; 70450; 71045; 80053; 81001; 82550; 83605; 83880; 84484; 85025; 85610; 87040; 87077; 93005; 96374; 96375; 99285; J0696; J2060; 99284-GF

== ENCOUNTER 2019-05-02 22:16 | Emergency (ER) | payer MEDICARE, MEDICAID ==
[2019-05-02] MEDS ORDERED: Nitroglycerin 0.2 MG/HR Transdermal Patch TRDERM ONE (22:53)
--- NOTE | 2019-05-02 22:59 | EDM.PDOC ---
ED HPI GENERAL MEDICAL PROBLEM - General Chief Complaint: Cardiovascular Problem Stated Complaint: HIGH BP Time Seen by Provider: 05/02/19 22:40 Source of Information: Reports: Family History Limitations: Reports: Other (pt non verbal ) - History of Present Illness INITIAL COMMENTS - FREE TEXT/NARRATIVE: Per and daughter patient has had increased blood pressure issues for the last month or better states that they had trouble regulating his blood pressure on and off now for several years but worse over the last month they have tried multiple regimens and recently applied Catapres patch some days it seems it works others and does not. [facility] with a blood pressure this morning at 9 AM 200/110 but tonight the family wanted him brought to the emergency room for treatment. They deny any change of normal behavior or activity or condition of the patient states this is baseline nonverbal very hard of hearing. Family at this time wishes to have limited interventions they' re okay with not drawn lab at this time there will inhabit drawn in the morning by the primary care provider at the prison they currently wished us to have his hypertension treated and sent back. - Related Data Allergies Allergy/AdvReac Type Severity Reaction Status Date / Time morphine AdvReac Confusion Verified 05/02/19 22:48 Home Meds: Home Meds Levothyroxine 50 mcg PO ACBREAKFAST 07/06/16 [History] Tamsulosin [Flomax] 0.8 mg PO BEDTIME 05/01/17 [History] Acetaminophen [Tylenol] 650 mg PO Q4H PRN #30 tablet 05/13/17 [Rx] Bisacodyl [Dulcolax] 5 mg PO DAILY PRN 08/24/17 [History] Bisacodyl [Dulcolax] 10 mg RECTAL DAILY PRN 08/24/17 [History] Citalopram [Celexa] 20 mg PO DAILY 08/24/17 [History] amLODIPine [Norvasc] 5 mg PO DAILY 08/24/17 [History] Aspirin 81 mg PO DAILY 05/02/19 [History] Betamethasone Dipropionate [Diprosone 0.05% Crm] 1 dose TOP MOTUWE 05/02/19 [ History] Carvedilol [Coreg] 3.125 mg PO BID 05/02/19 [History] Cyanocobalamin (Vitamin B-12) [Vitamin B-12] 50 mcg PO BID 05/02/19 [History] Dipyridamole 75 mg PO BID 05/02/19 [History] Furosemide [Lasix] 20 mg PO DAILY PRN 05/02/19 [History] Furosemide [Lasix] 20 mg PO MOWEFR 05/02/19 [History] Isosorbide Mononitrate [Isosorbide Mononitrate ER] 60 mg PO DAILY 05/02/19 [ History] Menthol/Camphor [Sarna Anti-Itch Lotion] 1 dose TP BID PRN 05/02/19 [History] Ondansetron HCl [Zofran] 4 mg PO Q6H PRN 05/02/19 [History] cloNIDine HCl [Catapres] 0.1 mg PO DAILY PRN 05/02/19 [History] cloNIDine [Clonidine] 1 each TOP DAILY 05/02/19 [History] Past Medical History HEENT History: Reports: Cataract, Hard of Hearing Cardiovascular History: Reports: Hypertension Genitourinary History: Reports: Acute Renal Failure, Prostate Disorder Musculoskeletal History: Reports: Other (See Below) Other Musculoskeletal History: 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; post CVA Neurological History: Reports: CVA Other Neuro History: 10 years ago Psychiatric History: Reports: None Endocrine/Metabolic History: Reports: Hypothyroidism Other Endocrine/Metabolic History: prediabetes (per chart) Hematologic History: Reports: Anemia Dermatologic History: Reports: None Other Dermatologic History: open cyst to low posterior neckline; current upon admission - Past Surgical History HEENT Surgical History: Reports: Cataract Surgery GI Surgical History: Reports: Cholecystectomy, Hernia, Abdominal Male Surgical History: Reports: None Social & Family History - Caffeine Use Caffeine Use: Reports: Coffee ED ROS GENERAL - Review of Systems Review Of Systems: Unable To Obtain (Review of systems obtained from and daughter) Constitutional: Reports: No Symptoms. Denies: Fever, Chills, Diaphoresis HEENT: Reports: No Symptoms Respiratory: Denies: Shortness of Breath, Pleuritic Chest Pain, Cough Cardiovascular: Reports: Blood Pressure Problem. Denies: Chest Pain, Edema, Orthopnea Endocrine: Reports: No Symptoms GI/Abdominal: Reports: No Symptoms : Reports: No Symptoms Skin: Reports: No Symptoms Neurological: Reports: No Symptoms Hematologic/Lymphatic: Reports: No Symptoms Immunologic: Reports: No Symptoms ED EXAM, GENERAL - Physical Exam Exam: See Below Exam Limited By: Other (PT is nonverbal but will follow some commands) General Appearance: Alert, WD/WN, No Apparent Distress, Other (Patient appears to be having no end organ signs or symptoms per and daughter again stated this is his baseline) Eye Exam: Bilateral Eye: EOMI, PERRL Nose: Normal Inspection, Normal Mucosa, No Blood Throat/Mouth: Normal Inspection, Normal Gums, Normal Oropharynx, No Airway Compromise, Other (Moist medical membranes) Neck: Normal Inspection, Full Range of Motion. No: Carotid Bruit Respiratory/Chest: No Respiratory Distress, Lungs Clear, Normal Breath Sounds Cardiovascular: Normal Peripheral Pulses, Regular Rate, Rhythm, No Edema, No Gallop, No JVD, No Murmur GI/Abdominal: Normal Bowel Sounds, Soft, Non-Tender, No Organomegaly Extremities: Normal Inspection, Non-Tender, No Pedal Edema Neurological: Alert. No: Normal Gait (Patient is alert follow some commands tract provider around the room patient is bedbound will not fully follow cranial nerve check) Psychiatric: Normal Affect Skin Exam: Warm, Dry, Intact, Normal Color, No Rash Course - Vital Signs Text/Narrative:: EKG was obtained normal sinus rhythm no acute findings per family request that wished to hold lab at this time patient does have a history of chronic renal insufficiency Discussed treatment with the patient's family at this time I'll use nitroglycerin patch 0.2 mg through the night and have the patient followed up with primary care in the morning secondary to he does not take oral medicines well both and daughter agree that this could course of treatment and they' re okay with disposition and follow-up Secondary to the patient's history of increased hypertension I feel that patient needs to be slowly titrated down on his hypertension gradually family also agrees with this Blood pressure rechecked 190/100 Last Recorded V/S: Last Vital Signs Temp 37.2 C 05/02/19 22:20 Pulse 83 05/02/19 23:28 Resp 18 05/02/19 23:28 BP 198/100 H 05/02/19 23:28 Pulse Ox 96 05/02/19 23:28 - Orders/Labs/Meds Orders: Active Orders 24 hr Category Date Time Status EKG 12 Lead [EKG Documentation Completion] [RC] STAT Care 05/02/19 23:20 Ordered Meds: Medications Discontinued Medications Generic Name Dose Route Start Last Admin Trade Name Sukumar PRN Reason Stop Dose Admin Nitroglycerin 0.2 mg 05/02/19 22:53 05/02/19 23:03 Nitro-Dur 0.2 Mg/Hr TRDERM 05/02/19 22:54 0.2 mg ONETIME ONE Administration Departure - Departure Time of Disposition: 23:15 Disposition: DC/Tfer to SNF 03 Condition: Fair Clinical Impression: Hypertension - Discharge Information *PRESCRIPTION DRUG MONITORING PROGRAM REVIEWED*: No *COPY OF PRESCRIPTION DRUG MONITORING REPORT IN PATIENT BONNY: No Instructions: Hypertension, [id number] Referrals: Deborah Leo, [Primary Care Provider] - Forms: ED Department Discharge Additional Instructions: Have the prison leave the nitroglycerin patch on until the morning have the patient's blood pressure rechecked every 4 hours if blood pressure gets less than 120/80 remove the patch or if there are any hemodynamically changes remove the patch if anything changes with patient's disposition remove the patch Continue to take all blood pressure medications as directed by primary care provider Return to the emergency room if anything changes or gets worse follow with primary care provider in the morning - Problem List & Annotations (1) Hypertension SNOMED Code(s): 50562478 Code(s): I10 - ESSENTIAL (PRIMARY) HYPERTENSION Status: Chronic Priority : Medium Current Visit: Yes Qualifiers: Hypertension type: essential hypertension Qualified Code(s): I10 - Essential (primary) hypertension - My Orders Last 24 Hours: My Active Orders 05/02/19 23:20 EKG 12 Lead [EKG Documentation Completion] [RC] STAT - Assessment/Plan Last 24 Hours: My Active Orders 05/02/19 23:20 EKG 12 Lead [EKG Documentation Completion] [RC] STAT
[2019-05-02 23:28] VITALS: BP 198/100; PULSE 83
== END 2019-05-02 23:50 ==
LOC: VM.ED 22:16
DX: I10 Essential (primary) hypertension (principal); E03.9 Hypothyroidism, unspecified; Z79.82 Long term (current) use of aspirin; Z79.899 Other long term (current) drug therapy; Z98.49 Cataract extraction status, unspecified eye; Z86.73 Personal history of transient ischemic attack (TIA), and cerebral infarction without residual deficits; Z90.49 Acquired absence of other specified parts of digestive tract; Z88.5 Allergy status to narcotic agent
CPT/HCPCS: 93005; 99283; A9270

== ENCOUNTER 2019-05-05 18:26 | Inpatient (IN) | payer MEDICARE, MEDICAID ==
[2019-05-05] MEDS ORDERED: Iopamidol 612 MG/ML 100 ML Bottle IVPUSH ONE (18:59)
[2019-05-05 19:27] LABS: CHLORIDE,CL 116 mmol/L (98-107); SODIUM,NA 154 mmol/L (136-145)
[2019-05-05 19:31] LABS: ANION GAP 12.1 mmol/L (10-20)
--- NOTE | 2019-05-05 19:47 | EDM.PDOC ---
ED HPI GENERAL MEDICAL PROBLEM - General Chief Complaint: General Stated Complaint: DEHYDRATION Time Seen by Provider: 05/05/19 19:00 Source of Information: Reports: Patient, Family History Limitations: Reports: Altered Mental Status - History of Present Illness INITIAL COMMENTS - FREE TEXT/NARRATIVE: PT presents from the residential, Na was 153 at the home, over the last few weeks be has had more then usual confusion, increased bp, Severity: Mild Improves with: Reports: None Worsens with: Reports: None - Related Data Allergies Allergy/AdvReac Type Severity Reaction Status Date / Time morphine AdvReac Confusion Verified 05/05/19 18:54 Home Meds: Home Meds Levothyroxine 50 mcg PO ACBREAKFAST 07/06/16 [History] Tamsulosin [Flomax] 0.8 mg PO BEDTIME 05/01/17 [History] Acetaminophen [Tylenol] 650 mg PO Q4H PRN #30 tablet 05/13/17 [Rx] Bisacodyl [Dulcolax] 5 mg PO DAILY PRN 08/24/17 [History] Bisacodyl [Dulcolax] 10 mg RECTAL DAILY PRN 08/24/17 [History] Citalopram [Celexa] 20 mg PO DAILY 08/24/17 [History] amLODIPine [Norvasc] 5 mg PO DAILY 08/24/17 [History] Aspirin 162 mg PO DAILY 05/02/19 [History] Betamethasone Dipropionate [Diprosone 0.05% Crm] 1 dose TOP MOTUWE 05/02/19 [ History] Carvedilol [Coreg] 3.125 mg PO BID 05/02/19 [History] Cyanocobalamin (Vitamin B-12) [Vitamin B-12] 50 mcg PO BID 05/02/19 [History] Dipyridamole 75 mg PO BID 05/02/19 [History] Furosemide [Lasix] 20 mg PO DAILY PRN 05/02/19 [History] Furosemide [Lasix] 20 mg PO MOWEFR 05/02/19 [History] Menthol/Camphor [Sarna Anti-Itch Lotion] 1 dose TP BID PRN 05/02/19 [History] Ondansetron HCl [Zofran] 4 mg PO Q6H PRN 05/02/19 [History] cloNIDine HCl [Catapres] 0.1 mg PO DAILY PRN 05/02/19 [History] cloNIDine [Clonidine] 1 each TOP DAILY 05/02/19 [History] Nitroglycerin [Nitro-Dur 0.4 MG/Hr] 0.4 mg TRDERM DAILY 05/05/19 [History] Past Medical History HEENT History: Reports: Cataract, Hard of Hearing Cardiovascular History: Reports: Hypertension Genitourinary History: Reports: Acute Renal Failure, Prostate Disorder Musculoskeletal History: Reports: Other (See Below) Other Musculoskeletal History: 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; post CVA Neurological History: Reports: CVA Other Neuro History: 10 years ago Psychiatric History: Reports: None Endocrine/Metabolic History: Reports: Hypothyroidism Other Endocrine/Metabolic History: prediabetes (per chart) Hematologic History: Reports: Anemia Dermatologic History: Reports: None Other Dermatologic History: open cyst to low posterior neckline; current upon admission - Past Surgical History HEENT Surgical History: Reports: Cataract Surgery GI Surgical History: Reports: Cholecystectomy, Hernia, Abdominal Male Surgical History: Reports: None Social & Family History - Caffeine Use Caffeine Use: Reports: Coffee ED ROS GENERAL - Review of Systems Review Of Systems: Unable To Obtain (unable to assess due to dementia) ED EXAM, GENERAL - Physical Exam Exam: See Below Free Text/Narrative:: PT presents from residential Na at 154 today, pt with hx of htn issues, has been more confused this week per family. Was started on ntg patch on thursday. Head ct was negative. Exam Limited By: Other (dementia) General Appearance: Alert Eye Exam: Bilateral Eye: PERRL Ears: Normal External Exam Nose: Normal Inspection Throat/Mouth: Normal Inspection Head: Atraumatic, Normocephalic Neck: Normal Inspection Respiratory/Chest: No Respiratory Distress, Lungs Clear, Normal Breath Sounds Cardiovascular: Normal Peripheral Pulses GI/Abdominal: Normal Bowel Sounds Neurological: Alert Course - Vital Signs Last Recorded V/S: Last Vital Signs Temp 36.7 C 05/05/19 18:50 Pulse 92 05/05/19 18:50 Resp 16 05/05/19 18:50 BP 215/112 H 05/05/19 18:50 Pulse Ox 94 L 05/05/19 18:50 - Orders/Labs/Meds Orders: Active Orders 24 hr Category Date Time Status Sodium Chloride 0.45% 1,000 ml Med 05/05/19 19:15 Active IV ASDIRECTED Medication Orders Sodium Chloride (Sodium Chloride 0.45%) 1,000 mls @ 100 mls/hr IV ASDIRECTED MAHOGANY Labs: Laboratory Tests 05/05/19 05/05/19 Range/Units 19:02 19:02 WBC 12.7 H (4.0-10.0) x10^3/uL RBC 4.95 (4.5-6.0) x10^6/uL Hgb 15.7 D (14.0-18.0) g/dL Hct 48.1 (40.0-52.0) % MCV 97.2 H (78.0-93.0) fL MCH 31.7 (26.0-32.0) pg MCHC 32.6 (32.0-36.0) g/dL RDW Coeff of Ra 13.5 (10.0-15.0) % Plt Count 295 (130-400) x10^3/uL Sodium 154 H D (136-145) mmol/L Potassium 4.1 (3.5-5.1) mmol/L Chloride 116 H D (98-107) mmol/L Carbon Dioxide 30 (21-32) mmol/L Anion Gap 12.1 (10-20) mmol/L BUN 55 H (7-18) mg/dL Creatinine 2.6 H (0.70-1.30) mg/dL Est Cr Clr Drug Dosing TNP Estimated GFR (MDRD) 24 Glucose 146 H (74-106) mg/dL Calcium 8.8 (8.5-10.1) mg/dL Corrected Calcium 10.08 (8.5-10.1) mg/dL Total Bilirubin 0.4 (0.2-1.0) mg/dL AST 42 H (15-37) U/L ALT 77 H (16-63) U/L Alkaline Phosphatase 127 H (46-116) U/L Total Protein 7.0 (6.4-8.2) g/dL Albumin 2.4 L (3.4-5.0) g/dL Globulin 4.6 Albumin/Globulin Ratio 0.52 Meds: Medications Generic Name Dose Route Start Last Admin Trade Name Freq PRN Reason Stop Dose Admin Sodium Chloride 1,000 mls @ 100 mls/hr 05/05/19 19:15 Sodium Chloride 0.45% IV ASDIRECTED MAHOGANY Discontinued Medications Generic Name Dose Route Start Last Admin Trade Name Sukumar PRN Reason Stop Dose Admin Iopamidol 100 ml 05/05/19 18:59 Isovue-300 (61%) IVPUSH 05/05/19 19:00 ONETIME ONE Departure - Departure Time of Disposition: 21:02 Disposition: Admitted As Inpatient 64 Clinical Impression: Hypernatremia - Discharge Information Referrals: Deborah Leo DO [Primary Care Provider] - Forms: ED Department Discharge - My Orders Last 24 Hours: My Active Orders 05/05/19 19:15 Sodium Chloride 0.45% 1,000 ml IV ASDIRECTED - Assessment/Plan Last 24 Hours: My Active Orders 05/05/19 19:15 Sodium Chloride 0.45% 1,000 ml IV ASDIRECTED
--- NOTE | 2019-05-05 20:11 | CT ---
[id number] CT/CT Head WO IV EXAM: CT Head WO IV CLINICAL DATA: RO STROKE IN PAST WEEK COMPARISON STUDY: December 13, 2018. FINDINGS: No intracranial hemorrhage, extra-axial fluid collection, mass, or acute ischemia. Stable area of encephalomalacia within the right cerebellar hemisphere consistent with old infarcts. Generalized parenchymal atrophy with scattered areas of nonspecific white matter disease, commonly seen as sequela of chronic microvascular ischemia. The ventricles demonstrate asymmetric prominence relative to the sulci. Soft tissues are unremarkable. Mild paranasal sinus disease. IMPRESSION: No acute intracranial findings. Edward Kaur DO 05/05/192009 Thank you for allowing us to participate in the care of your patient.
[2019-05-05] MEDS ORDERED: Ondansetron 4 MG/2 ML SDV IV PRN (21:13)
[2019-05-05] MEDS ORDERED: Ondansetron 4 MG Tab.DIS PO PRN (21:18)
--- NOTE | 2019-05-05 21:29 | PCM.HP.2 ---
H&P History of Present Illness - General Date of Service: 05/05/19 Admit Problem/Dx: Admission Diagnosis/Problem Admission Diagnosis/Problem Hypernatremia Source of Information: Family, Jail Records - History of Present Illness Initial Comments - Free Text/Narative: Patient has been not himself for over a week symptoms worse on Thursday with significantly elevated blood pressures over 200/100 noted ER visit on 05/02 was given IV labetolol and he had been refusing imdur so he was instead given a nitro patch. His Clonidine patch had moved on his body so it was replaced. He since then has had trouble sleeping at night. He was more lethargic today. Labs were done and his Cr was up to 2.6 normally around 2.0 and sodium up to 153. He did eat today. NO reports of cough, fevers or diarrhea. Did have some shaking a spitting up a couple days ago no vomiting today. He has a hx of stroke with right hemiparesis. Has a hx of difficult to control HTN. Onset of Symptoms: Reports: Gradual - Related Data Allergies/Adverse Reactions: Allergies Allergy/AdvReac Type Severity Reaction Status Date / Time morphine AdvReac Confusion Verified 05/05/19 18:54 Home Medications: Home Meds Levothyroxine 50 mcg PO ACBREAKFAST 07/06/16 [History] Tamsulosin [Flomax] 0.8 mg PO BEDTIME 05/01/17 [History] Acetaminophen [Tylenol] 650 mg PO Q4H PRN #30 tablet 05/13/17 [Rx] Bisacodyl [Dulcolax] 5 mg PO DAILY PRN 08/24/17 [History] Bisacodyl [Dulcolax] 10 mg RECTAL DAILY PRN 08/24/17 [History] Citalopram [Celexa] 20 mg PO DAILY 08/24/17 [History] amLODIPine [Norvasc] 5 mg PO DAILY 08/24/17 [History] Aspirin 162 mg PO DAILY 05/02/19 [History] Betamethasone Dipropionate [Diprosone 0.05% Crm] 1 dose TOP MOTUWE 05/02/19 [ History] Carvedilol [Coreg] 3.125 mg PO BID 05/02/19 [History] Cyanocobalamin (Vitamin B-12) [Vitamin B-12] 50 mcg PO BID 05/02/19 [History] Dipyridamole 75 mg PO BID 05/02/19 [History] Furosemide [Lasix] 20 mg PO DAILY PRN 05/02/19 [History] Furosemide [Lasix] 20 mg PO MOWEFR 05/02/19 [History] Menthol/Camphor [Sarna Anti-Itch Lotion] 1 dose TP BID PRN 05/02/19 [History] Ondansetron HCl [Zofran] 4 mg PO Q6H PRN 05/02/19 [History] cloNIDine HCl [Catapres] 0.1 mg PO DAILY PRN 05/02/19 [History] cloNIDine [Clonidine] 1 each TOP DAILY 05/02/19 [History] Nitroglycerin [Nitro-Dur 0.4 MG/Hr] 0.4 mg TRDERM DAILY 05/05/19 [History] Past Medical History HEENT History: Reports: Cataract, Hard of Hearing Cardiovascular History: Reports: Hypertension Genitourinary History: Reports: Acute Renal Failure, Prostate Disorder Musculoskeletal History: Reports: Other (See Below) Other Musculoskeletal History: 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; post CVA Neurological History: Reports: CVA Other Neuro History: 10 years ago Psychiatric History: Reports: None Endocrine/Metabolic History: Reports: Hypothyroidism Other Endocrine/Metabolic History: prediabetes (per chart) Hematologic History: Reports: Anemia Dermatologic History: Reports: None Other Dermatologic History: open cyst to low posterior neckline; current upon admission - Past Surgical History HEENT Surgical History: Reports: Cataract Surgery GI Surgical History: Reports: Cholecystectomy, Hernia, Abdominal Male Surgical History: Reports: None Social & Family History - Caffeine Use Caffeine Use: Reports: Coffee H&P Review of Systems - Review of Systems: Review Of Systems: Unable To Obtain Exam - Exam Exam: See Below - Vital Signs Vital Signs: Last Vital Signs Temp 98.1 F 05/05/19 18:50 Pulse 92 05/05/19 18:50 Resp 16 05/05/19 18:50 BP 215/112 H 05/05/19 18:50 Pulse Ox 94 L 05/05/19 18:50 Weight: 73.482 kg - Exam General: Alert, Cooperative HEENT: Conjunctiva Clear, Pupils Equal, Other (dry oral mucosa ) Neck: Supple, Trachea Midline Lungs: Clear to Auscultation, Normal Respiratory Effort Cardiovascular: Regular Rate, Regular Rhythm, Normal S1, Normal S2 GI/Abdominal Exam: Normal Bowel Sounds, Soft, Non-Tender, No Organomegaly, No Distention Back Exam: Normal Inspection Extremities: Normal Inspection, No Pedal Edema Peripheral Pulses: 2+: Carotid (L), Carotid (R) Skin: Warm, Dry Neuro Extensive - Mental Status: Other (he became more somnolent during our visit, didn't answer questions tonight hasn't been talking today) Neuro Extensive - Motor, Sensory, Reflexes: Other (he is moving the left arm) - Patient Data Lab Results Last 24 hrs: Laboratory Results - last 24 hr 05/05/19 05/05/19 Range/Units 19:02 19:02 WBC 12.7 H (4.0-10.0) x10^3/uL RBC 4.95 (4.5-6.0) x10^6/uL Hgb 15.7 D (14.0-18.0) g/dL Hct 48.1 (40.0-52.0) % MCV 97.2 H (78.0-93.0) fL MCH 31.7 (26.0-32.0) pg MCHC 32.6 (32.0-36.0) g/dL RDW Coeff of Ra 13.5 (10.0-15.0) % Plt Count 295 (130-400) x10^3/uL Sodium 154 H D (136-145) mmol/L Potassium 4.1 (3.5-5.1) mmol/L Chloride 116 H D (98-107) mmol/L Carbon Dioxide 30 (21-32) mmol/L Anion Gap 12.1 (10-20) mmol/L BUN 55 H (7-18) mg/dL Creatinine 2.6 H (0.70-1.30) mg/dL Est Cr Clr Drug Dosing TNP Estimated GFR (MDRD) 24 Glucose 146 H (74-106) mg/dL Calcium 8.8 (8.5-10.1) mg/dL Corrected Calcium 10.08 (8.5-10.1) mg/dL Total Bilirubin 0.4 (0.2-1.0) mg/dL AST 42 H (15-37) U/L ALT 77 H (16-63) U/L Alkaline Phosphatase 127 H (46-116) U/L Total Protein 7.0 (6.4-8.2) g/dL Albumin 2.4 L (3.4-5.0) g/dL Globulin 4.6 Albumin/Globulin Ratio 0.52 Result Diagrams: 05/05/19 19:02 05/05/19 19:02 *Q Meaningful Use (ADM) - VTE Risk Assess *Q Each Risk Factor Represents 3 Points: Age 75 Years or Greater Total Score 3 Point Risk Factors: 3 - Problem List (1) Hypernatremia SNOMED Code(s): 305851587 ICD Code: E87.0 - HYPEROSMOLALITY AND HYPERNATREMIA Status: Acute Priority: High Current Visit: Yes (2) Acute on chronic renal failure SNOMED Code(s): 386178554 ICD Code: N17.9 - ACUTE KIDNEY FAILURE, UNSPECIFIED; N18.9 - CHRONIC KIDNEY DISEASE, UNSPECIFIED Status: Acute Priority: High Current Visit: No Problem Details: Qualifiers: Acute renal failure type: unspecified Chronic kidney disease stage: stage 3 (moderate) Qualified Code(s): N17.9 - Acute kidney failure, unspecified; N18.3 - Chronic kidney disease, stage 3 (moderate) (3) BPH (benign prostatic hyperplasia) SNOMED Code(s): 029389620 ICD Code: N40.0 - BENIGN PROSTATIC HYPERPLASIA WITHOUT LOWER URINRY TRACT SYMP Status: Chronic Priority: Medium Current Visit: No Problem Details : - Flomax has been continued. Qualifiers: Lower urinary tract symptom presence: unspecified whether lower urinary tract symptoms present Qualified Code(s): N40.0 - Benign prostatic hyperplasia without lower urinary tract symptoms (4) Cerebrovascular accident SNOMED Code(s): 438816268 ICD Code: I63.9 - CEREBRAL INFARCTION, UNSPECIFIED Status: Chronic Priority: Medium Current Visit: No Qualifiers: CVA mechanism: unspecified Qualified Code(s): I63.9 - Cerebral infarction, unspecified (5) Hypertension SNOMED Code(s): 86511550 ICD Code: I10 - ESSENTIAL (PRIMARY) HYPERTENSION Status: Chronic Priority : Medium Current Visit: No Qualifiers: Hypertension type: essential hypertension Qualified Code(s): I10 - Essential (primary) hypertension (6) Hypothyroidism SNOMED Code(s): 58900626 ICD Code: E03.9 - HYPOTHYROIDISM, UNSPECIFIED Status: Chronic Current Visit: No Qualifiers: Hypothyroidism type: acquired Qualified Code(s): E03.9 - Hypothyroidism, unspecified Problem List Initiated/Reviewed/Updated: Yes Orders Last 24hrs: Active Orders 24 hr Category Date Time Status Patient Status [ADT] Routine ADT 05/05/19 21:02 Active Bladder Scan [RC] ASDIRECTED Care 05/05/19 21:21 Active Blood Glucose Check, Bedside [RC] WITHMEALSANDBED Care 05/05/19 21:13 Active Intake and Output [RC] QSHIFT Care 05/05/19 21:13 Active Oxygen Therapy [RC] PRN Care 05/05/19 21:13 Active Up With Assistance [RC] ASDIRECTED Care 05/05/19 21:13 Active VTE/DVT Education [RC] PER UNIT ROUTINE Care 05/05/19 21:13 Active Vital Signs [RC] Q4H Care 05/05/19 21:13 Active 2 Gram Sodium Diet [DIET] Diet 05/05/19 Breakfast Active CBC WITH AUTO DIFF [HEME] AM Lab 05/06/19 05:15 Ordered COMPREHENSIVE METABOLIC PN,CMP [CHEM] AM Lab 05/06/19 05:15 Ordered UA RFX SAIDA AND CULT IF INDIC [URIN] Routine Lab 05/05/19 21:21 Ordered Acetaminophen [Tylenol] Med 05/05/19 21:18 Ordered 650 mg PO Q4H PRN Aspirin Med 05/06/19 08:00 Ordered 162 mg PO DAILY Carvedilol [Coreg] Med 05/06/19 08:00 Ordered 3.125 mg PO BID Citalopram [Celexa] Med 05/06/19 08:00 Ordered 20 mg PO DAILY Cyanocobalamin (Vitamin B-12) [Vitamin B-12] Med 05/06/19 08:00 Ordered 50 mcg PO BID Dipyridamole [Dipyridamole] Med 05/06/19 08:00 Ordered 75 mg PO BID Labetalol [Normodyne] Med 05/05/19 21:22 Ordered 20 mg IVPUSH Q4H PRN Levothyroxine Med 05/06/19 07:00 Ordered 50 mcg PO ACBREAKFAST Nitroglycerin [Nitro-Dur 0.4 MG/Hr] Med 05/06/19 08:00 Ordered 0.4 mg TRDERM DAILY Ondansetron HCl Med 05/05/19 21:18 Ordered 4 mg PO Q6H PRN Ondansetron [Zofran] Med 05/05/19 21:13 Ordered 4 mg IV Q4H PRN Sodium Chloride 0.45% 1,000 ml Med 05/05/19 19:15 Active IV ASDIRECTED Tamsulosin [Flomax] Med 05/05/19 21:20 Ordered 0.8 mg PO BEDTIME amLODIPine [Norvasc] Med 05/05/19 21:30 Ordered 5 mg PO DAILY cloNIDine Med 05/06/19 08:00 Ordered 1 each TOP DAILY Resuscitation Status Routine Resus Stat 05/05/19 21:13 Ordered Medication Orders Acetaminophen (Tylenol) 650 mg PO Q4H PRN PRN Reason: Pain Amlodipine Besylate (Norvasc) 5 mg PO DAILY [facility] Aspirin (Aspirin) 162 mg PO DAILY [facility] Carvedilol (Coreg) 3.125 mg PO BID [facility] Citalopram Hydrobromide (Celexa) 20 mg PO DAILY [facility] Sodium Chloride (Sodium Chloride 0.45%) 1,000 mls @ 125 mls/hr IV ASDIRECTED MAHOGANY Stop: 05/08/19 03:14 Labetalol HCl (Normodyne) 20 mg IVPUSH Q4H PRN; Protocol PRN Reason: Hypertension Levothyroxine Sodium (Levothyroxine) 50 mcg PO ACBREAKFAST [facility] Nitroglycerin (Nitro-Dur 0.4 Mg/Hr) 0.4 mg TRDERM DAILY [facility] Non-Formulary Medication (Clonidine) 1 each TOP DAILY [facility] Non-Formulary Medication (Cyanocobalamin (Vitamin B-12) [Vitamin B-12]) 50 mcg PO BID [facility] Non-Formulary Medication (Dipyridamole [Dipyridamole]) 75 mg PO BID [facility] Non-Formulary Medication (Ondansetron Hcl) 4 mg PO Q6H PRN PRN Reason: Nausea Ondansetron HCl (Zofran) 4 mg IV Q4H PRN PRN Reason: Nausea/Vomiting Tamsulosin HCl (Flomax) 0.8 mg PO BEDTIME [facility] Assessment/Plan Comment:: 1. Hypernatremia probably due to poor oral intake 2. Hypertension with poorly controlled blood pressure, CT did not show any bleed or recent large stroke 3. Acute on chronic renal failure 4. Hx of stroke 5. Hyperglycemia Plan Admit 1/2 normal saline 125 ml/hr Repeat labs in AM Discussed with daughter and IV labetolol prn home meds for blood pressure QID accuchecks - Mortality Measure Prognosis:: Poor
[2019-05-05] MEDS: amLODIPine 5 MG Tab PO SCH (22:31)
[2019-05-05] MEDS: Tamsulosin 0.4 MG Cap.ER PO SCH (22:31)
[2019-05-06] MEDS: Labetalol 20 MG/4 ML Syringe IVPUSH PRN (02:43)
[2019-05-06] MEDS: Levothyroxine 50 MCG Tab PO SCH ×2 (05:24→06:02)
[2019-05-06] MEDS: Sodium Chloride 0.45% 1,000 ML IV SCH ×3 (05:24→17:38)
[2019-05-06] MEDS ORDERED: CYANOCOBALAMIN 50 MCG PO SCH (08:00)
[2019-05-06] MEDS: Acetaminophen 325 MG Tab PO PRN (08:30)
[2019-05-06] MEDS: Citalopram 20 MG Tab PO SCH (08:31)
[2019-05-06] MEDS: Aspirin 81 MG Tab.Chew PO SCH (08:31)
[2019-05-06] MEDS: Carvedilol 3.125 MG Tab PO SCH ×2 (08:31→20:26)
[2019-05-06] MEDS: amLODIPine 5 MG Tab PO SCH ×3 (08:32→20:27)
[2019-05-06] MEDS: Nitroglycerin 0.4 MG/HR Transdermal Patch TRDERM SCH (08:36)
--- NOTE | 2019-05-06 09:40 | CR ---
[id number] RAD/RAD Chest PA or AP 1V EXAM: RAD Chest PA or AP 1V INDICATION: ELEVATED WHITE BLOOD COUNT. COMPARISON: December 13, 2018. DISCUSSION: Stable enlargement of the cardiomediastinal silhouette compared to the prior examination. No infiltrate, effusion, pneumothorax, or edema. IMPRESSION: No evidence of pneumonia or other acute findings in the chest. Jovanny Fernandez MD 05/06/19 0938 Thank you for allowing us to participate in the care of your patient.
[2019-05-06] MEDS: Heparin Sodium 5,000 Units/ML Vial SUBCUT SCH (17:38)
--- NOTE | 2019-05-06 17:40 | PN ---
Progress Note for CONSUELO PINEDA Date: 05/06/2019 Room #: VM.215 SUBJECTIVE: An 84-year-old seen on hospital day #2 for hypernatremia and lethargy. The patient has had no fevers, but his white count did go up to 19,000. His urine was negative for infection. He was able to eat and drink some things today, but not very much. He was talking just slightly answering questions like yes or no. He otherwise does not appear to be in any pain other than when they were drawing his blood work earlier. His oxygen levels have been maintained above 90 without oxygen, and his blood pressure has been slightly improved over what he was at the [facility]. OBJECTIVE: Vital Signs: His temperature 98.2, pulse 82, blood pressure 196/90, respiratory rate 20, O2 of 94% on room air. General: He is in no acute distress. Heart: Regular rate and rhythm. S1, S2 without murmur. Lungs: Lung sounds are clear to auscultation bilaterally without crackles or wheezes. Abdomen: Positive bowel sounds. Soft, nontender. Extremities: Warm and dry. There is no edema. Mental Status: He is somnolent, but does open his eyes to verbal stimuli. Makes good eye contact, will shake his head or say yes or no to a few questions, but it has been his behaviors in the past and not always talk when he does not want to. LABORATORY DATA: His lab work does show his sodium has improved down to 150, this morning potassium 4, chloride 117, bicarb 30, BUN 50, creatinine 2.5, glucose 25, calcium 8.4, bilirubin 0.4, AST down to 39, ALT down to 74, albumin 2.2. ASSESSMENT AND PLAN: 1. Leukocytosis. No source of fever. Blood cultures have been done. Chest x- ray okay. 2. Hypernatremia, probably due to poor oral intake, improving. 3. Elevated blood pressures with known essential hypertension. The potential for recent stroke has been discussed. We have adjusted his medications. He received 1 dose of IV labetalol since he has been here. 4. History of stroke with right hemiplegia. He is at the [facility] normally. 5. Hyperglycemia. His A1c was around 6.4. He did have a blood sugar up to 211 this morning. We will do q.i.d. checks for another day and discontinue if they are all under 200. 6. Acute on chronic renal failure. Baseline creatinine is around 2. His creatinine is currently 2.5. We will recheck tomorrow after he has had some IV fluids. I will also give him heparin twice daily for DVT prophylaxis. MKA: 05/06/2019 17:03:55 MODL: 05/06/2019 17:22:36 /[id number]
[2019-05-06] MEDS: Tamsulosin 0.4 MG Cap.ER PO SCH (20:27)
[2019-05-07] MEDS: Sodium Chloride 0.45% 1,000 ML IV SCH ×4 (00:41→15:22)
[2019-05-07] MEDS: Labetalol 20 MG/4 ML Syringe IVPUSH PRN (05:31)
[2019-05-07] MEDS: Heparin Sodium 5,000 Units/ML Vial SUBCUT SCH ×2 (07:32→17:50)
[2019-05-07 07:52] LABS: ANION GAP 12.8 mmol/L (10-20)
[2019-05-07] MEDS: Carvedilol 3.125 MG Tab PO SCH ×2 (09:58→20:45)
[2019-05-07] MEDS: Citalopram 20 MG Tab PO SCH (09:58)
[2019-05-07] MEDS: amLODIPine 5 MG Tab PO SCH ×2 (09:59→20:45)
[2019-05-07] MEDS: Nitroglycerin 0.4 MG/HR Transdermal Patch TRDERM SCH (09:59)
[2019-05-07] MEDS: Levothyroxine 50 MCG Tab PO SCH (10:02)
[2019-05-07] MEDS: Aspirin 81 MG Tab.Chew PO SCH (10:02)
[2019-05-07] MEDS ORDERED: cefTRIAXone 1 GM Vial IVPUSH ONE (10:45)
--- NOTE | 2019-05-07 10:49 | PCM.PN ---
- General Info Date of Service: 05/07/19 Admission Dx/Problem (Free Text): Admission Diagnosis/Problem Admission Diagnosis/Problem Hypernatremia Subjective Update: Pt is still not talking although he opens eyes; does not indicate any pain - Patient Data Vitals - Most Recent: Last Vital Signs Temp 98.9 F 05/07/19 05:28 Pulse 81 05/07/19 09:58 Resp 20 05/07/19 05:28 BP 204/81 H 05/07/19 09:59 Pulse Ox 95 05/07/19 05:28 Weight - Most Recent: 162 lb I&O - Last 24 Hours: Intake & Output 05/06/19 05/07/19 05/07/19 22:59 06:59 14:59 Intake Total 2433 1885 Balance 2433 1885 Lab Results Last 24 Hours: Laboratory Results - last 24 hr 05/06/19 05/06/19 05/06/19 Range/Units 11:33 15:10 17:25 WBC (4.0-10.0) x10^3/uL RBC (4.5-6.0) x10^6/uL Hgb (14.0-18.0) g/dL Hct (40.0-52.0) % MCV (78.0-93.0) fL MCH (26.0-32.0) pg MCHC (32.0-36.0) g/dL RDW Coeff of Ra (10.0-15.0) % Plt Count (130-400) x10^3/uL Neut % (Auto) (50.0-80.0) % Lymph % (Auto) (25.0-50.0) % [place] % (Auto) (2.0-11.0) % Eos % (Auto) (0.0-4.0) % Baso % (Auto) (0.2-1.2) % Sodium 150 H (136-145) mmol/L Potassium (3.5-5.1) mmol/L Chloride (98-107) mmol/L Carbon Dioxide (21-32) mmol/L Anion Gap (10-20) mmol/L BUN (7-18) mg/dL Creatinine (0.70-1.30) mg/dL Est Cr Clr Drug Dosing mL/min Estimated GFR (MDRD) Glucose (74-106) mg/dL POC Glucose 211 H 111 H (74-106) mg/dL Calcium (8.5-10.1) mg/dL 05/06/19 05/07/19 05/07/19 Range/Units 20:15 06:27 07:25 WBC 18.7 H (4.0-10.0) x10^3/uL RBC 3.63 L (4.5-6.0) x10^6/uL Hgb 11.5 L D (14.0-18.0) g/dL Hct 35.3 L (40.0-52.0) % MCV 97.2 H (78.0-93.0) fL MCH 31.7 (26.0-32.0) pg MCHC 32.6 (32.0-36.0) g/dL RDW Coeff of Ra 13.0 (10.0-15.0) % Plt Count 222 (130-400) x10^3/uL Neut % (Auto) 80.0 (50.0-80.0) % Lymph % (Auto) 11.0 L (25.0-50.0) % [place] % (Auto) 8.4 (2.0-11.0) % Eos % (Auto) 0.5 (0.0-4.0) % Baso % (Auto) 0.1 L (0.2-1.2) % Sodium (136-145) mmol/L Potassium (3.5-5.1) mmol/L Chloride (98-107) mmol/L Carbon Dioxide (21-32) mmol/L Anion Gap (10-20) mmol/L BUN (7-18) mg/dL Creatinine (0.70-1.30) mg/dL Est Cr Clr Drug Dosing mL/min Estimated GFR (MDRD) Glucose (74-106) mg/dL POC Glucose 272 H 142 H (74-106) mg/dL Calcium (8.5-10.1) mg/dL 05/07/19 Range/Units 07:25 WBC (4.0-10.0) x10^3/uL RBC (4.5-6.0) x10^6/uL Hgb (14.0-18.0) g/dL Hct (40.0-52.0) % MCV (78.0-93.0) fL MCH (26.0-32.0) pg MCHC (32.0-36.0) g/dL RDW Coeff of Ra (10.0-15.0) % Plt Count (130-400) x10^3/uL Neut % (Auto) (50.0-80.0) % Lymph % (Auto) (25.0-50.0) % [place] % (Auto) (2.0-11.0) % Eos % (Auto) (0.0-4.0) % Baso % (Auto) (0.2-1.2) % Sodium 146 H (136-145) mmol/L Potassium 3.8 (3.5-5.1) mmol/L Chloride 111 H (98-107) mmol/L Carbon Dioxide 26 (21-32) mmol/L Anion Gap 12.8 (10-20) mmol/L BUN 41 H (7-18) mg/dL Creatinine 2.3 H (0.70-1.30) mg/dL Est Cr Clr Drug Dosing 20.80 mL/min Estimated GFR (MDRD) 27 Glucose 144 H (74-106) mg/dL POC Glucose (74-106) mg/dL Calcium 7.5 L (8.5-10.1) mg/dL Robbie Results Last 24 Hours: Microbiology 05/06/19 09:04 Aerobic Blood Culture - Preliminary Blood - Venous - Lab Draw NO GROWTH AFTER 1 DAY Anaerobic Blood Culture - Preliminary NO GROWTH AFTER 1 DAY 05/06/19 08:53 Aerobic Blood Culture - Preliminary Blood - Venous NO GROWTH AFTER 1 DAY Anaerobic Blood Culture - Preliminary NO GROWTH AFTER 1 DAY 05/06/19 01:37 MRSA Surveillance Culture - Final Nares, Unspecified NO MRSA ISOLATED Med Orders - Current: Current Medications Acetaminophen (Tylenol) 650 mg PO Q4H PRN PRN Reason: Pain Last Admin: 05/06/19 08:30 Dose: 650 mg Amlodipine Besylate (Norvasc) 5 mg PO BID [facility] Last Admin: 05/07/19 09:59 Dose: 5 mg Aspirin (Aspirin) 162 mg PO DAILY [facility] Last Admin: 05/07/19 10:02 Dose: Not Given Carvedilol (Coreg) 6.25 mg PO BID [facility] Ceftriaxone Sodium (Rocephin) 1 gm IVPUSH ONETIME ONE Stop: 05/07/19 10:46 Citalopram Hydrobromide (Celexa) 20 mg PO DAILY [facility] Last Admin: 05/07/19 09:58 Dose: 20 mg Dipyridamole (Dipyridamole) 75 mg PO BID [facility] Last Admin: 05/07/19 10:02 Dose: Not Given Heparin Sodium (Porcine) (Heparin Sodium) 5,000 units SUBCUT Q12H [facility] Last Admin: 05/07/19 07:32 Dose: Not Given Sodium Chloride (Sodium Chloride 0.45%) 1,000 mls @ 125 mls/hr IV ASDIRECTED [facility] Last Admin: 05/07/19 10:06 Dose: 125 mls/hr Labetalol HCl (Normodyne) 20 mg IVPUSH Q4H PRN; Protocol PRN Reason: Hypertension Last Admin: 05/07/19 05:31 Dose: 20 mg Levothyroxine Sodium (Synthroid) 50 mcg PO ACBREAKFAST [facility] Last Admin: 05/07/19 10:02 Dose: Not Given Miscellaneous Information (Remove Patch) 1 ea TRDERM Q24H [facility] Last Admin: 05/06/19 20:29 Dose: 1 ea Nitroglycerin (Nitro-Dur 0.4 Mg/Hr) 0.4 mg TRDERM DAILY [facility] Last Admin: 05/07/19 09:59 Dose: 0.4 mg Clonidine 0.2mg (Patch) 1 each TOP Q7D [facility] Ondansetron HCl (Zofran) 4 mg IV Q4H PRN PRN Reason: Nausea/Vomiting Ondansetron HCl (Zofran Odt) 4 mg PO Q6H PRN PRN Reason: Nausea Tamsulosin HCl (Flomax) 0.8 mg PO BEDTIME [facility] Last Admin: 05/06/19 20:27 Dose: 0.8 mg Discontinued Medications Amlodipine Besylate (Norvasc) 5 mg PO DAILY [facility] Last Admin: 05/06/19 09:24 Dose: Not Given Carvedilol (Coreg) 3.125 mg PO BID [facility] Last Admin: 05/07/19 09:58 Dose: 3.125 mg Sodium Chloride (Sodium Chloride 0.45%) 1,000 mls @ 175 mls/hr IV ASDIRECTED [facility] Stop: 05/08/19 00:58 Last Admin: 05/06/19 12:36 Dose: 175 mls/hr Iopamidol (Isovue-300 (61%)) 100 ml IVPUSH ONETIME ONE Stop: 05/05/19 19:00 Last Admin: 05/05/19 23:50 Dose: Not Given - Exam General: Other (opens his eyes, loods around but does not track voices) Neck: Supple Lungs: Rales (dry rales throughout) Cardiovascular: Regular Rate GI/Abdominal Exam: Normal Bowel Sounds, Non-Tender, No Distention, No Mass Back Exam: Normal Inspection Extremities: Normal Inspection, Other (right hemoparesis) Skin: Warm, Dry, Intact (scar right shoulder- healed, small bruise in right axialla, no tenderness ) Physical Findings Comments:: no dental pain elicited - Problem List Review Problem List Initiated/Reviewed/Updated: Yes - My Orders Last 24 Hours: My Active Orders 05/07/19 10:32 CULTURE URINE [RM] Routine 05/07/19 10:33 URINALYSIS W/MICROSCOPIC [UA W/MICROSCOPIC] [URIN] Routine 05/07/19 10:35 Dietary Supplements [RC] BIDMEALS 05/07/19 10:36 Communication Order [RC] PRN 05/07/19 10:39 Communication Order [RC] ROUTINE 05/07/19 10:45 cefTRIAXone [Rocephin] 1 gm IVPUSH ONETIME ONE 05/07/19 20:00 Carvedilol [Coreg] 6.25 mg PO BID - Assessment Assessment:: 1. Hyponatremia: resolving nicely, decrease IV 2. Leukocytosis: worrisome . Pt had some pink urine this AM. Will recheck UA and C and S; no obvious source of infection, will trat empirically with rocephin for possible prostatitis 3. Labile htn: {Pt responds fairly well to labetalol but control is still not good with spike to over 210. Will increase coreg to 6.5 BID, try to increase clonidine to 3 q week; this far bradycardia has not been an issue - Plan Plan:: 1. Hypernatremia probably due to poor oral intake 2. Hypertension with poorly controlled blood pressure, CT did not show any bleed or recent large stroke 3. Acute on chronic renal failure 4. Hx of stroke 5. Hyperglycemia Plan Admit 1/2 normal saline 125 ml/hr Repeat labs in AM Discussed with daughter and IV labetolol prn home meds for blood pressure QID accuchecks
[2019-05-07] MEDS: Acetaminophen 325 MG Tab PO PRN (14:53)
[2019-05-07] MEDS: Tamsulosin 0.4 MG Cap.ER PO SCH (20:45)
[2019-05-08] MEDS: Acetaminophen 325 MG Tab PO PRN (01:39)
[2019-05-08] MEDS: Sodium Chloride 0.45% 1,000 ML IV SCH ×2 (02:17→10:21)
[2019-05-08] MEDS: Levothyroxine 50 MCG Tab PO SCH (06:08)
[2019-05-08] MEDS: Heparin Sodium 5,000 Units/ML Vial SUBCUT SCH ×2 (06:37→18:01)
[2019-05-08 08:09] LABS: ANION GAP 11.7 mmol/L (10-20)
[2019-05-08] MEDS: Nitroglycerin 0.4 MG/HR Transdermal Patch TRDERM SCH (08:47)
[2019-05-08] MEDS: Citalopram 20 MG Tab PO SCH (08:48)
[2019-05-08] MEDS: Carvedilol 3.125 MG Tab PO SCH ×2 (08:48→20:46)
[2019-05-08] MEDS: Aspirin 81 MG Tab.Chew PO SCH (08:49)
[2019-05-08] MEDS: amLODIPine 5 MG Tab PO SCH ×2 (08:50→20:47)
--- NOTE | 2019-05-08 09:34 | PCM.PN ---
- General Info Date of Service: 05/08/19 Subjective Update: Pt continues to be sleepy and is not verbal; wakes up and looks around after being moved for exam. Staff report that he is eating well with feeding by family but he has a cough, even with pureed diet. They have not seen any víctor aspiration - Patient Data Vitals - Most Recent: Last Vital Signs Temp 97.6 F 05/08/19 05:21 Pulse 70 05/08/19 08:48 Resp 20 05/08/19 05:21 BP 148/85 H 05/08/19 08:50 Pulse Ox 96 05/08/19 05:21 Weight - Most Recent: 171 lb 6.4 oz I&O - Last 24 Hours: Intake & Output 05/07/19 05/08/19 05/08/19 22:59 06:59 14:59 Intake Total 1660 1374 120 Balance 1660 1374 120 Lab Results Last 24 Hours: Laboratory Results - last 24 hr 05/07/19 05/07/19 05/07/19 Range/Units 11:00 11:31 17:36 WBC (4.0-10.0) x10^3/uL RBC (4.5-6.0) x10^6/uL Hgb (14.0-18.0) g/dL Hct (40.0-52.0) % MCV (78.0-93.0) fL MCH (26.0-32.0) pg MCHC (32.0-36.0) g/dL RDW Coeff of Ra (10.0-15.0) % Plt Count (130-400) x10^3/uL Neut % (Auto) (50.0-80.0) % Lymph % (Auto) (25.0-50.0) % [place] % (Auto) (2.0-11.0) % Eos % (Auto) (0.0-4.0) % Baso % (Auto) (0.2-1.2) % Sodium (136-145) mmol/L Potassium (3.5-5.1) mmol/L Chloride (98-107) mmol/L Carbon Dioxide (21-32) mmol/L Anion Gap (10-20) mmol/L BUN (7-18) mg/dL Creatinine (0.70-1.30) mg/dL Est Cr Clr Drug Dosing mL/min Estimated GFR (MDRD) Glucose (74-106) mg/dL POC Glucose 189 H 104 (74-106) mg/dL Calcium (8.5-10.1) mg/dL Urine Color Yellow (YELLOW) Urine Appearance Slightly cloudy H (CLEAR) Urine pH 6.0 (5.0-8.0) Ur Specific [place] 1.015 Urine Protein >=300 H (NEGATIVE) mg/dL Urine Glucose (UA) Negative (NEGATIVE) mg/dL Urine Ketones Negative (NEGATIVE) mg/dL Urine Occult Blood Large H (NEGATIVE) Urine Nitrite Negative (NEGATIVE) Urine Bilirubin Negative (NEGATIVE) Urine Urobilinogen 0.2 (0.2) EU/dL Ur Leukocyte Esterase Small H (NEGATIVE) Urine RBC 0-5 (NOT SEEN) /HPF Urine WBC 10-20 H (NOT SEEN) /HPF Ur Squamous Epith Cells Rare (NEGATIVE) /HPF Urine Bacteria Few H (NEGATIVE) /HPF Urine Mucus Not seen (NEGATIVE) /LPF 05/07/19 05/08/19 05/08/19 Range/Units 20:58 07:44 07:44 WBC 16.8 H (4.0-10.0) x10^3/uL RBC 3.42 L (4.5-6.0) x10^6/uL Hgb 11.1 L (14.0-18.0) g/dL Hct 33.5 L (40.0-52.0) % MCV 98.0 H (78.0-93.0) fL MCH 32.5 H (26.0-32.0) pg MCHC 33.1 (32.0-36.0) g/dL RDW Coeff of Ra 13.1 (10.0-15.0) % Plt Count 209 (130-400) x10^3/uL Neut % (Auto) 81.1 H (50.0-80.0) % Lymph % (Auto) 9.7 L (25.0-50.0) % [place] % (Auto) 8.3 (2.0-11.0) % Eos % (Auto) 0.7 (0.0-4.0) % Baso % (Auto) 0.2 (0.2-1.2) % Sodium 143 (136-145) mmol/L Potassium 3.7 (3.5-5.1) mmol/L Chloride 109 H (98-107) mmol/L Carbon Dioxide 26 (21-32) mmol/L Anion Gap 11.7 (10-20) mmol/L BUN 37 H (7-18) mg/dL Creatinine 2.5 H (0.70-1.30) mg/dL Est Cr Clr Drug Dosing 19.14 mL/min Estimated GFR (MDRD) 25 Glucose 126 H (74-106) mg/dL POC Glucose 198 H (74-106) mg/dL Calcium 7.8 L (8.5-10.1) mg/dL Urine Color (YELLOW) Urine Appearance (CLEAR) Urine pH (5.0-8.0) Ur Specific [place] Urine Protein (NEGATIVE) mg/dL Urine Glucose (UA) (NEGATIVE) mg/dL Urine Ketones (NEGATIVE) mg/dL Urine Occult Blood (NEGATIVE) Urine Nitrite (NEGATIVE) Urine Bilirubin (NEGATIVE) Urine Urobilinogen (0.2) EU/dL Ur Leukocyte Esterase (NEGATIVE) Urine RBC (NOT SEEN) /HPF Urine WBC (NOT SEEN) /HPF Ur Squamous Epith Cells (NEGATIVE) /HPF Urine Bacteria (NEGATIVE) /HPF Urine Mucus (NEGATIVE) /LPF Robbie Results Last 24 Hours: Microbiology 05/06/19 09:04 Aerobic Blood Culture - Preliminary Blood - Venous - Lab Draw NO GROWTH AFTER 2 DAYS Anaerobic Blood Culture - Preliminary NO GROWTH AFTER 2 DAYS 05/06/19 08:53 Aerobic Blood Culture - Preliminary Blood - Venous NO GROWTH AFTER 2 DAYS Anaerobic Blood Culture - Preliminary NO GROWTH AFTER 2 DAYS 05/07/19 11:00 Urine Culture - Preliminary Urine, Clean Catch Gram Negative Rods 05/06/19 01:37 MRSA Surveillance Culture - Final Nares, Unspecified NO MRSA ISOLATED Med Orders - Current: Current Medications Acetaminophen (Tylenol) 650 mg PO Q4H PRN PRN Reason: Pain Last Admin: 05/08/19 01:39 Dose: 650 mg Amlodipine Besylate (Norvasc) 5 mg PO BID [facility] Last Admin: 05/08/19 08:50 Dose: 5 mg Aspirin (Aspirin) 162 mg PO DAILY [facility] Last Admin: 05/08/19 08:49 Dose: 162 mg Carvedilol (Coreg) 6.25 mg PO BID [facility] Last Admin: 05/08/19 08:48 Dose: 6.25 mg Ceftriaxone Sodium (Rocephin) 1 gm IVPUSH DAILY [facility] Citalopram Hydrobromide (Celexa) 20 mg PO DAILY [facility] Last Admin: 05/08/19 08:48 Dose: 20 mg Dipyridamole (Dipyridamole) 75 mg PO BID [facility] Last Admin: 05/08/19 08:47 Dose: 75 mg Heparin Sodium (Porcine) (Heparin Sodium) 5,000 units SUBCUT Q12H [facility] Last Admin: 05/08/19 06:37 Dose: 5,000 units Sodium Chloride (Sodium Chloride 0.45%) 1,000 mls @ 50 mls/hr IV ASDIRECTED [facility] Last Admin: 05/08/19 02:17 Dose: 125 mls/hr Labetalol HCl (Normodyne) 20 mg IVPUSH Q4H PRN; Protocol PRN Reason: Hypertension Last Admin: 05/07/19 05:31 Dose: 20 mg Levothyroxine Sodium (Synthroid) 50 mcg PO ACBREAKFAST [facility] Last Admin: 05/08/19 06:08 Dose: 50 mcg Miscellaneous Information (Remove Patch) 1 ea TRDERM Q24H [facility] Last Admin: 05/07/19 20:45 Dose: 1 ea Nitroglycerin (Nitro-Dur 0.4 Mg/Hr) 0.4 mg TRDERM DAILY [facility] Last Admin: 05/08/19 08:47 Dose: 0.4 mg Clonidine 0.2mg (Patch) 1 each TOP Q7D [facility] Ondansetron HCl (Zofran) 4 mg IV Q4H PRN PRN Reason: Nausea/Vomiting Ondansetron HCl (Zofran Odt) 4 mg PO Q6H PRN PRN Reason: Nausea Tamsulosin HCl (Flomax) 0.8 mg PO BEDTIME [facility] Last Admin: 05/07/19 20:45 Dose: 0.8 mg Discontinued Medications Amlodipine Besylate (Norvasc) 5 mg PO DAILY [facility] Last Admin: 05/06/19 09:24 Dose: Not Given Carvedilol (Coreg) 3.125 mg PO BID [facility] Last Admin: 05/07/19 09:58 Dose: 3.125 mg Ceftriaxone Sodium (Rocephin) 1 gm IVPUSH ONETIME ONE Stop: 05/07/19 10:46 Last Admin: 05/07/19 12:22 Dose: 1 gm Sodium Chloride (Sodium Chloride 0.45%) 1,000 mls @ 175 mls/hr IV ASDIRECTED [facility] Stop: 05/08/19 00:58 Last Admin: 05/06/19 12:36 Dose: 175 mls/hr Iopamidol (Isovue-300 (61%)) 100 ml IVPUSH ONETIME ONE Stop: 05/05/19 19:00 Last Admin: 05/05/19 23:50 Dose: Not Given - Exam General: Lethargic Lungs: Clear to Auscultation Cardiovascular: Regular Rate, Regular Rhythm, No Murmurs GI/Abdominal Exam: Normal Bowel Sounds, Soft, Non-Tender, No Organomegaly, No Distention Extremities: Normal Inspection - Problem List Review Problem List Initiated/Reviewed/Updated: Yes - My Orders Last 24 Hours: My Active Orders 05/07/19 10:35 Dietary Supplements [RC] BIDMEALS 05/07/19 10:36 Communication Order [RC] PRN 05/07/19 11:00 CULTURE URINE [RM] Routine 05/07/19 20:00 Carvedilol [Coreg] 6.25 mg PO BID 05/08/19 09:26 Dietary Supplements [RC] BIDMEALS PT Evaluation and Treatment [CONS] Routine 05/08/19 09:30 cefTRIAXone [Rocephin] 1 gm IVPUSH DAILY 05/09/19 07:00 CBC W/O DIFF,HEMOGRAM [HEME] Routine - Assessment Assessment:: 1. Hyponatremia: resolved: will further IV as he has taking fluids 2. Leukocytosis: likely from UTI- either bladder or prostate- responding to Ceftriaxone so will continue 3. HTN: Coreg was increased and BP has not spiked to over 200; Clonidine patch was not increased as this was not available, will D/c order to increase clonidine patch 4. Weakness: PT consult in AM 5. Risk for aspiration: unclear if pt is a candidate for swallowing study. Lungs sound better with mobilization to chair yesterday 6. Hematuria: no recurrence: anticoagulants restarted. - Plan Plan:: 1. Hypernatremia probably due to poor oral intake 2. Hypertension with poorly controlled blood pressure, CT did not show any bleed or recent large stroke 3. Acute on chronic renal failure 4. Hx of stroke 5. Hyperglycemia Plan Admit 1/2 normal saline 125 ml/hr Repeat labs in AM Discussed with daughter and IV labetolol prn home meds for blood pressure QID accuchecks
[2019-05-08] MEDS: cefTRIAXone 1 GM Vial IVPUSH SCH (10:24)
[2019-05-08] MEDS: Tamsulosin 0.4 MG Cap.ER PO SCH (20:46)
[2019-05-09 03:28] VITALS: PULSE 76
[2019-05-09] MEDS: Levothyroxine 50 MCG Tab PO SCH (06:32)
[2019-05-09] MEDS: Heparin Sodium 5,000 Units/ML Vial SUBCUT SCH (06:32)
[2019-05-09 06:36] VITALS: BP 174/67
[2019-05-09] MEDS ORDERED: CLONIDINE 0.2 MG TOP SCH (08:00)
[2019-05-09] MEDS ORDERED: Levofloxacin 500 MG Tab PO SCH (08:30)
[2019-05-09] MEDS: Aspirin 81 MG Tab.Chew PO SCH (09:03)
[2019-05-09] MEDS: cefTRIAXone 1 GM Vial IVPUSH SCH (09:03)
[2019-05-09] MEDS: Nitroglycerin 0.4 MG/HR Transdermal Patch TRDERM SCH (09:04)
[2019-05-09] MEDS: Citalopram 20 MG Tab PO SCH (09:04)
[2019-05-09] MEDS: amLODIPine 5 MG Tab PO SCH (09:05)
[2019-05-09] MEDS: Carvedilol 3.125 MG Tab PO SCH (09:05)
--- NOTE | 2019-05-09 15:34 | DISCH ---
PRIMARY DISCHARGE DIAGNOSES: 1. Hypernatremia due to poor oral intake. 2. Elevated blood pressures, improved with medication adjustments. 3. Somnolence with history of stroke, possibly recurrence, another stroke. However, CT did not show any acute changes. 4. Leukocytosis. Initial urine normal. Chest x-ray negative. Blood cultures negative, but repeat urine showed possibility of infection with 10 to 20 wbc's, started on Rocephin on 05/07/2019 with improved white count, possibly a prostatitis. 5. Hyperglycemia with prediabetes. Blood sugars improved after stress of his acute illness resolved. 6. [id number] renal failure. Creatinine still up at about 2.5 on discharge. His baseline would be closer to 2.0. He did get down to 2.3 during his stay. 7. Mood disorder. The patient is not having any current issues. REASON FOR ADMISSION: On the date of admission, this 84-year-old male who had been having elevated blood pressures and decreased level of consciousness at the [facility] was brought down because his sodium level was up to 154. He was not having any cough or breathing problems. He had no fevers. He had vomited a few days earlier, but no vomiting here. Otherwise, he was admitted. He was placed on half-normal saline. His sodium gradually improved down to 154, by the next afternoon 146, and then 143 yesterday. It was not repeated today. His white count which did go up to 19,000 improved with the IV Rocephin down to 12.4 on discharge. His bladder scans were done, both were less than 200. His urine culture did grow Proteus which was sensitive to the medications. His IV Rocephin was switched over to Levaquin and he was discharged on that. Otherwise, he did receive some IV doses of labetalol for elevated blood pressures, but none within 24 hours of discharge. His amlodipine was increased up to 10 mg daily. His Coreg was also increased and he was in no pain at the time of discharge. On the discharging morning, he was less alert, but he was still sleeping. He did open his eyes. When he saw who it was, he just did not engage in conversation, but he was more alert yesterday, especially when his family was there per the weekend physician. DISCHARGE PLANS AND INSTRUCTIONS: He is going back up to [facility]. No new medications for diabetes initiated. We will repeat an A1c within the next 3 to 4 months. He will have a BMP and CBC in 1 week. Increase amlodipine to 10, Coreg to 6.25 twice daily, Levaquin 500 every other day for 5 more doses. He will be on yogurt to prevent diarrhea. He will encourage water intake. He will have therapies, PT, OT, and speech at the long term. I will recheck on May. PHYSICAL EXAMINATION: Vital Signs: Discharging vitals; weight 78.0 kg, temp 97.7, pulse 76, blood pressure 174/67, respiratory rate 18, O2 of 94% on room air. General: He is in no acute distress. He is resting comfortably, but did open his eyes. HEENT: His pupils were reactive and they were focusing and looking around. Heart: Regular rate and rhythm. S1, S2 without murmur. Lungs: Lung sounds are clear to auscultation bilaterally without crackles or wheezes. Abdomen: Nondistended, nontender. Extremities: Warm and dry. He had no edema. Mental Status: He was somnolent. He was not answering questions. Greater than 30 minutes spent on the discharge process. MKA: 05/09/2019 10:32:14 MODL: 05/09/2019 14:54:54 /[id number]
== END 2019-05-09 10:00 | DRG 683 ==
LOC: VM.ED 18:26 → VM.MS 21:02
PROVIDERS: ADMIT Internal Medicine; ATTEND Internal Medicine
DX: N17.9 Acute kidney failure, unspecified (principal); E86.0 Dehydration; E87.0 Hyperosmolality and hypernatremia; N18.3 Chronic kidney disease, stage 3 (moderate); I69.351 Hemiplegia and hemiparesis following cerebral infarction affecting right dominant side; R41.82 Altered mental status, unspecified; R40.0 Somnolence; F03.90 Unspecified dementia, unspecified severity, without behavioral disturbance, psychotic disturbance, mood disturbance, and anxiety; I69.951 Hemiplegia and hemiparesis following unspecified cerebrovascular disease affecting right dominant side; R73.9 Hyperglycemia, unspecified; R73.03 Prediabetes; N18.9 Chronic kidney disease, unspecified; F39 Unspecified mood [affective] disorder; I12.9 Hypertensive chronic kidney disease with stage 1 through stage 4 chronic kidney disease, or unspecified chronic kidney disease; N40.0 Benign prostatic hyperplasia without lower urinary tract symptoms; E03.9 Hypothyroidism, unspecified; N41.9 Inflammatory disease of prostate, unspecified; Z90.49 Acquired absence of other specified parts of digestive tract; Z86.73 Personal history of transient ischemic attack (TIA), and cerebral infarction without residual deficits; Z88.5 Allergy status to narcotic agent; Z79.899 Other long term (current) drug therapy; Z79.82 Long term (current) use of aspirin; Z98.49 Cataract extraction status, unspecified eye
CPT/HCPCS: 36415; 51798; 70450; 71045; 80048; 80053; 81001; 82962; 84295; 85025; 85027; 87040; 87086; 87088; 87186; 96360; 99284-GF; 99285-25; A9270-GY; J0696; J1644; J3490; J7030

== ENCOUNTER 2019-10-02 08:23 | Emergency (ER) | payer MEDICARE, MEDICAID ==
[2019-10-02 08:34] VITALS: PULSE 78
[2019-10-02] MEDS ORDERED: Labetalol 20 MG/4 ML Syringe IVPUSH ONE ×2 (08:37→09:29)
--- NOTE | 2019-10-02 09:23 | EDM.PDOC ---
ED HPI GENERAL MEDICAL PROBLEM - General Chief Complaint: Cardiovascular Problem Time Seen by Provider: 10/02/19 08:45 Source of Information: Reports: EMS, Family History Limitations: Reports: Altered Mental Status - History of Present Illness INITIAL COMMENTS - FREE TEXT/NARRATIVE: Patient presents to ER via ambulance due to family having concerns about his hypertension. Daughter states patient has not been eating or drinking anything for the last few days. Daughter states usually patient responds but when he is sick or dehydrated he is less respondent. Patient is currently at a skilled nursing. Daughter states patient has CT of head in July that showed signs of fluid on brain. Daughter states patient denies wanting dialysis and does not think patient would want surgery for shunt. Patient is incontinent. Family denies fever, chills, cough, rash. MRI results show mild amount of hydrocephalus which was ruled as age-related changes. Patient has long standing history of CKD causing electrolyte imbalance and BUN and creatinine. Patient has history of CVA with right hemiparesis. Pt. was hospitalized at [facility] in [place] at the end of Jul. At that time , pt. was also not eating and was minimally responsive. He was in renal failure and was found to have normal pressure hydrocephalus on head CT. In reviewing his chart, it appeared that pt. was sent back to the skilled nursing with plan for palliative care. Pt. was consuming some oral hydration, but stopped last week. He was seen in the clinic on Thursday and was given IV fluids. Onset: Today Onset Date: 10/02/19 Duration: Getting Worse - Related Data Allergies Allergy/AdvReac Type Severity Reaction Status Date / Time morphine AdvReac Confusion Verified 10/02/19 08:39 Home Meds: Home Meds Levothyroxine 75 mcg PO ACBREAKFAST 07/06/16 [History] Bisacodyl [Dulcolax] 5 mg PO DAILY PRN 08/24/17 [History] Bisacodyl [Dulcolax] 10 mg RECTAL DAILY PRN 08/24/17 [History] Betamethasone Dipropionate [Diprosone 0.05% Crm] 1 dose TOP MOTUWE 05/02/19 [ History] cloNIDine [Catapres TTS-2] 1 each TOP WEEKLY 05/02/19 [History] Docusate Sodium/Sennosides [Senna Plus] 1 each PO BID 10/02/19 [History] NIFEdipine [Nifedipine ER] 30 mg PO DAILY 10/02/19 [History] Sennosides [Senna Lax] 8.6 mg PO BID 10/02/19 [History] glipiZIDE [Glucotrol XL] 2.5 mg PO DAILY 10/02/19 [History] hydrALAZINE HCl [Hydralazine HCl] 50 mg PO TID 10/02/19 [History] polyethylene glycoL 3350 [MiraLAX] 17 gm PO DAILY PRN 10/02/19 [History] Past Medical History HEENT History: Reports: Cataract, Hard of Hearing Cardiovascular History: Reports: Hypertension Genitourinary History: Reports: Acute Renal Failure, Prostate Disorder Musculoskeletal History: Reports: Other (See Below) Other Musculoskeletal History: 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; post CVA Neurological History: Reports: CVA Other Neuro History: 10 years ago Psychiatric History: Reports: None Endocrine/Metabolic History: Reports: Hypothyroidism Other Endocrine/Metabolic History: prediabetes (per chart) Hematologic History: Reports: Anemia Dermatologic History: Reports: None Other Dermatologic History: open cyst to low posterior neckline; current upon admission - Past Surgical History HEENT Surgical History: Reports: Cataract Surgery GI Surgical History: Reports: Cholecystectomy, Hernia, Abdominal Social & Family History - Tobacco Use Smoking Status *Q: Unknown Ever Smoked - Caffeine Use Caffeine Use: Reports: Coffee ED ROS GENERAL - Review of Systems Review Of Systems: See Below Constitutional: Reports: Weakness, Fatigue, Decreased Appetite. Denies: Fever, Chills, Diaphoresis, Weight Loss, Weight Gain HEENT: Reports: No Symptoms Respiratory: Denies: Shortness of Breath, Wheezing, Cough, Sputum Cardiovascular: Reports: No Symptoms. Denies: Chest Pain Endocrine: Reports: Fatigue GI/Abdominal: Reports: No Symptoms : Reports: Incontinence Musculoskeletal: Reports: No Symptoms Skin: Reports: Pallor. Denies: Cyanosis, Jaundice, Mottled, Diaphoresis, Rash Neurological: Reports: Confusion, Trouble Speaking, Difficulty Walking, Weakness , Gait Disturbance Psychiatric: Reports: No Symptoms Hematologic/Lymphatic: Reports: No Symptoms Immunologic: Reports: No Symptoms ED EXAM, GENERAL - Physical Exam Exam: See Below Exam Limited By: Altered Mental Status General Appearance: Lethargic Ears: Normal External Exam Nose: Normal Inspection Head: Atraumatic, Normocephalic Neck: Normal Inspection, Supple Respiratory/Chest: No Respiratory Distress, Lungs Clear, Normal Breath Sounds, No Accessory Muscle Use Cardiovascular: Normal Peripheral Pulses, Regular Rate, Rhythm, No Edema, No JVD , No Murmur Peripheral Pulses: 2+: Radial (L), Radial (R), Dorsalis Pedis (L), Dorsalis Pedis (R) GI/Abdominal: Normal Bowel Sounds, Soft, No Organomegaly, No Distention, No Abnormal Bruit, No Mass (Male) Exam: Deferred Rectal (Males) Exam: Deferred Extremities: Normal Inspection, No Pedal Edema, Normal Capillary Refill Neurological: Slow to Respond, Other (muffled words) Psychiatric: Flat Affect Skin Exam: Warm, Dry, Intact, Normal Color, No Rash Lymphatic: No Adenopathy Course - Vital Signs Last Recorded V/S: Last Vital Signs Temp 37.0 C 10/02/19 08:23 Pulse 78 10/02/19 08:23 Resp 18 10/02/19 08:23 BP 213/82 H 10/02/19 09:09 Pulse Ox 98 10/02/19 08:23 - Orders/Labs/Meds Orders: Active Orders 24 hr Category Date Time Status Chest 1V Frontal [CR] Stat Exams 10/02/19 08:36 Taken Head wo Cont [CT] Stat Exams 10/02/19 08:34 Ordered COMPREHENSIVE METABOLIC PN,CMP [CHEM] Stat Lab 10/02/19 08:48 Received CRP [C-REACTIVE PROTEIN] [CHEM] Stat Lab 10/02/19 08:48 Received MAGNESIUM [CHEM] Stat Lab 10/02/19 08:48 Received PHOSPHORUS [CHEM] Stat Lab 10/02/19 08:48 Received PRO B-TYPE NATRIUR PEPT,BNPPRO [CHEM] Stat Lab 10/02/19 08:48 Received TROPONIN I [CHEM] Stat Lab 10/02/19 08:48 Received TSH ULTRASENSITIVE [CHEM] Stat Lab 10/02/19 08:48 Received UA W/MICROSCOPIC [URIN] Stat Lab 10/02/19 08:35 Ordered Labs: Laboratory Tests 10/02/19 10/02/19 Range/Units 08:48 08:48 WBC 8.3 (4.0-10.0) x10^3/uL RBC 3.14 L (4.5-6.0) x10^6/uL Hgb 9.6 L D (14.0-18.0) g/dL Hct 31.0 L (40.0-52.0) % MCV 98.7 H (78.0-93.0) fL MCH 30.6 (26.0-32.0) pg MCHC 31.0 L (32.0-36.0) g/dL RDW Coeff of Ra 13.6 (10.0-15.0) % Plt Count 396 D (130-400) x10^3/uL Neut % (Auto) 62.3 (50.0-80.0) % Lymph % (Auto) 24.5 L (25.0-50.0) % Moore % (Auto) 11.2 H (2.0-11.0) % Eos % (Auto) 1.6 (0.0-4.0) % Baso % (Auto) 0.4 (0.2-1.2) % PT 10.7 (10.0-12.8) SEC INR 0.9 L (2.0-3.5) Meds: Medications Discontinued Medications Generic Name Dose Route Start Last Admin Trade Name Freq PRN Reason Stop Dose Admin Labetalol HCl 20 mg 10/02/19 08:37 10/02/19 08:55 Normodyne IVPUSH 10/02/19 08:38 20 mg NOW ONE Administration Protocol - Re-Assessments/Exams Free Text/Narrative Re-Assessment/Exam: 10/02/19 0830 Patient was seen by provider, CT of head, labs and UA ordered 20 of labetalol ordered IV 0900 Lab work shows Elevated BNP, elevated BUN and Creatinine 40 Lasix IV 0930 Patient BP is still significantly elevated 200/80, Labetalol 20 mg IV ordered 10/02/19 1125 Called radiologist at [facility] to compare CT scan from today and Jul., confirmed CT from today shows evidence of acute embolic infarct involving MCA not previously on CT in July. Departure - Departure Time of Disposition: 11:15 Disposition: DC/Tfer to [facility] Reason for Transfer *Q: Other Condition: Poor Clinical Impression: End of life care, Chronic kidney disease CVA (cerebral vascular accident) Qualifiers: CVA mechanism: unspecified Qualified Code(s): I63.9 - Cerebral infarction, unspecified Hypertension Qualifiers: Hypertension type: essential hypertension Qualified Code(s): I10 - Essential ( primary) hypertension Referrals: Erika Mckeon DO [Primary Care Provider] - Sepsis Event Note - Evaluation Sepsis Screening Result: No Definite Risk - Focused Exam Vital Signs: Vital Signs Temp Pulse Resp BP Pulse Ox 10/02/19 09:09 213/82 H 10/02/19 08:23 37.0 C 78 18 216/98 H 98 Date Exam was Performed: 10/02/19 Time Exam was Performed: 09:14 - My Orders Last 24 Hours: My Active Orders 10/02/19 08:34 Head wo Cont [CT] Stat 10/02/19 08:35 UA W/MICROSCOPIC [URIN] Stat 10/02/19 08:36 Chest 1V Frontal [CR] Stat 10/02/19 08:48 COMPREHENSIVE METABOLIC PN,CMP [CHEM] Stat CRP [C-REACTIVE PROTEIN] [CHEM] Stat MAGNESIUM [CHEM] Stat PHOSPHORUS [CHEM] Stat PRO B-TYPE NATRIUR PEPT,BNPPRO [CHEM] Stat TROPONIN I [CHEM] Stat TSH ULTRASENSITIVE [CHEM] Stat - Assessment/Plan Last 24 Hours: My Active Orders 10/02/19 08:34 Head wo Cont [CT] Stat 10/02/19 08:35 UA W/MICROSCOPIC [URIN] Stat 10/02/19 08:36 Chest 1V Frontal [CR] Stat 10/02/19 08:48 COMPREHENSIVE METABOLIC PN,CMP [CHEM] Stat CRP [C-REACTIVE PROTEIN] [CHEM] Stat MAGNESIUM [CHEM] Stat PHOSPHORUS [CHEM] Stat PRO B-TYPE NATRIUR PEPT,BNPPRO [CHEM] Stat TROPONIN I [CHEM] Stat TSH ULTRASENSITIVE [CHEM] Stat Plan: Discussed findings at length with family/pt. PCP. Pt. will be started on nitro patch 0.2mg once daily for hypertension. Decreased his hydralazine to 25mg TID if he is able to take it. He was started on morphine liquid 20mg/5ml. Will start at 1ml every hour as needed for discomfort/agitation. Contact PCP for further end of life orders. Family is requesting oxygen. Pt. was started on O2 per NC at 2L/min. Family does not want to start dialysis, provide shunt for hydrocephalus, PEG tube, etc. I advised against continuing IV hydration at this point. Family was resistive to contacting hospice, although it appears patient is nearing the end of his life. Total of approx. 1.5 hours spent coordinating care/care conference with family.
[2019-10-02 09:27] LABS: ANION GAP 10.3 mmol/L (10-20); CHLORIDE,CL 109 mmol/L (98-107); SODIUM,NA 144 mmol/L (136-145)
[2019-10-02] MEDS ORDERED: Furosemide 40 MG/4 ML VIAL IV ONE (09:32)
[2019-10-02] MEDS ORDERED: Nitroglycerin 0.2 MG/HR Transdermal Patch TRDERM ONE (09:58)
[2019-10-02 10:10] VITALS: BP 184/72
--- NOTE | 2019-10-02 10:56 | CT ---
[id number] CT/CT Head WO IV EXAM: CT Head WO IV CLINICAL DATA: HYPERTENSIVE CRISIS COMPARISON: CORRELATION IS MADE WITH THE EXAM OF 2018 FINDINGS: A subacute infarction is seen between the right middle right posterior cerebral circulation This is not seen in review of the April exam This is likely embolic There may be a new infarction developing in the right middle cerebral distribution. There is no mass or mass effect There is no hemorrhage There are no extra-axial fluid collections The ventricles are enlarged There is an old small right posterior inferior cerebellar artery infarction. IMPRESSION: Development of right side middle cerebral embolic-type infarctions since April 2019 Question of more recent right middle cerebral artery infarction No hemorrhage No basal ganglia or brainstem infarction Consider follow-up if needed David Holt MD 10/02/19 8200 Thank you for allowing us to participate in the care of your patient.
--- NOTE | 2019-10-02 11:03 | CR ---
[id number] RAD/RAD Chest PA or AP 1V EXAM: SINGLE VIEW CHEST. INDICATION: HYPERTENSIVE CRISIS COMPARISON: CORRELATION IS MADE WITH THE EXAM OF 2018 FINDINGS: The lungs are clear The cardiomediastinal contour is stable IMPRESSION: NO ACUTE PROCESS David Holt MD 10/02/19 0870 Thank you for allowing us to participate in the care of your patient.
== END 2019-10-02 11:10 ==
LOC: VM.ED 08:23
DX: I12.9 Hypertensive chronic kidney disease with stage 1 through stage 4 chronic kidney disease, or unspecified chronic kidney disease (principal); N18.9 Chronic kidney disease, unspecified; D63.1 Anemia in chronic kidney disease; I63.9 Cerebral infarction, unspecified; E03.9 Hypothyroidism, unspecified; Z79.899 Other long term (current) drug therapy; Z88.5 Allergy status to narcotic agent
CPT/HCPCS: 36415; 70450; 71045; 80053; 81001; 83735; 83880; 84100; 84443; 84484; 85025; 85610; 86140; 96374; 96375; 96376; 99284; 99285; A9270; J1940; J3490